=== PATIENT | female | born 1950 | race Caucasian/White ===

== ENCOUNTER 2017-10-05 08:29 | Emergency (ER) | payer BC, MEDICARE ==
[2017-10-05] MEDS ORDERED: ONDANSETRON HCL INJ/PF 4 MG/2 ML SDV IV ONE (08:38)
--- NOTE | 2017-10-05 08:39 | ER Document Report ---
ED General - General Chief Complaint: Nausea/Vomiting/Diarrhea Stated Complaint: VOMITING Time Seen by Provider: 10/05/17 08:38 Mode of Arrival: Ambulatory Information source: Patient Notes: 67-year-old female presents with complaints of nausea vomiting diarrhea for the duration. Patient states it has been constant she denies any fevers or chills admits to cramping when she is having the diarrhea. Patient notes multiple sick contacts at home denies any previous similar episodes with family member does note patient has a history of abdominal symptoms that have been similar TRAVEL OUTSIDE OF THE [place] IN LAST 30 DAYS: No - HPI Onset: Last week Onset/Duration: Persistent Quality of pain: Cramping Severity: Mild Pain Level: 1 Associated symptoms: Diarrhea, Nausea, Vomiting Exacerbated by: Denies Relieved by: Denies Similar symptoms previously: Yes Recently seen / treated by doctor: No - Related Data Allergies/Adverse Reactions: No Known Allergies Allergy (Verified 10/05/17 08:30) Past Medical History - Social History Smoking Status: Current Every Day Smoker Cigarette use (# per day): Yes Chew tobacco use (# tins/day): No Smoking Education Provided: No Family History: Reviewed & Not Pertinent GI Medical History: Reports: Hx Ulcer Past Surgical History: Reports: Hx Abdominal Surgery - X3 for gastric ulcers, Hx Hysterectomy, Hx Orthopedic Surgery - bilateral knee arthroscopic surgery 15 years ago, Hx Tonsillectomy Review of Systems - Review of Systems Notes: REVIEW OF SYSTEMS: CONSTITUTIONAL : Denies fever, chills, or sweats. Denies recent illness. EENT: Denies eye, ear, throat, or mouth pain or symptoms. Denies nasal or sinus congestion or discharge. Denies throat, tongue, or mouth swelling or difficulty swallowing. CARDIOVASCULAR: Denies chest pain. Denies palpitations or racing or irregular heart beat. Denies ankle edema. RESPIRATORY: Denies cough, cold, or chest congestion. Denies shortness of breath, difficulty breathing, or wheezing. GASTROINTESTINAL: Admits to nausea vomiting diarrhea GENITOURINARY: Denies difficulty urinating, painful urination, burning, frequency, blood in urine, or discharge. FEMALE GENITOURINARY: Denies vaginal bleeding, heavy or abnormal periods, irregular periods. Denies vaginal discharge or odor. MUSCULOSKELETAL: Denies back or neck pain or stiffness. Denies joint pain or swelling. SKIN: Denies rash, lesions or sores. HEMATOLOGIC : Denies easy bruising or bleeding. LYMPHATIC: Denies swollen, enlarged glands. NEUROLOGICAL: Denies confusion or altered mental status. Denies passing out or loss of consciousness. Denies dizziness or lightheadedness. Denies headache. Denies weakness or paralysis or loss of use of either side. Denies problems with gait or speech. Denies sensory loss, numbness, or tingling. Denies seizures. PSYCHIATRIC: Denies anxiety or stress. Denies depression, suicidal ideation, or homicidal ideation. ALL OTHER SYSTEMS REVIEWED AND NEGATIVE. PHYSICAL EXAMINATION: GENERAL: Well-appearing, well-nourished and in no acute distress. HEAD: Atraumatic, normocephalic. EYES: Pupils equal round and reactive to light, extraocular movements intact, conjunctiva are normal. ENT: Nares patent, oropharynx clear without exudates. Dry lips NECK: Normal range of motion, supple without lymphadenopathy LUNGS: Breath sounds clear to auscultation bilaterally and equal. No wheezes rales or rhonchi. HEART: Tachycardic ABDOMEN: Soft, nontender, nondistended abdomen. No guarding, no rebound. No masses appreciated. Female : deferred Musculoskeletal: Normal range of motion, no pitting or edema. No cyanosis. NEUROLOGICAL: Cranial nerves grossly intact. Normal speech, normal gait. Normal sensory, motor exams PSYCH: Normal mood, normal affect. SKIN: Warm, Dry, normal turgor, no rashes or lesions noted. Dictation was performed using [employer] voice recognition software Physical Exam - Vital signs Vitals: Temp Pulse Resp BP Pulse Ox 98.2 F 122 H 20 154/69 H 98 10/05/17 08:35 10/05/17 08:35 10/05/17 08:35 10/05/17 08:35 10/05/17 08:35 Course - Re-evaluation Re-evalutation: 10/05/17 11:27 Patient appears to be dehydrated from constant nausea vomiting diarrhea, IV fluids have been ordered and she starts state that she is feeling better but is still mildly nauseated for the fluids and nausea control have been ordered 10/05/17 16:57 After 3 L of fluid were given patient looks much better she states she feels much better, I believe she was significantly dehydrated. Her heart rate came down to 103 on my evaluation and she is stable for discharge with understand that she returns immediately if symptoms do worsen she will be discharged home with nausea control After performing a Medical Screening Examination, I estimate there is LOW risk for ACUTE APPENDICITIS, BOWEL OBSTRUCTION, ACUTE CHOLECYSTITIS, PERFORATED DIVERTICULITIS, INCARCERATED HERNIA, PANCREATITIS, PELVIC INFLAMMATORY DISEASE, PERFORATED ULCER, ECTOPIC , or TUBO-OVARIAN ABSCESS, thus I consider the discharge disposition reasonable. Also, there is no evidence or peritonitis , sepsis, or toxicity. I have reevaluated this patient multiple times and no significant life threatening changes are noted. The patient and I have discussed the diagnosis and risks, and we agree with discharging home with close follow-up with the understanding that symptoms and presentations can change. We also discussed returning to the Emergency Department immediately if new or worsening symptoms occur. We have discussed the symptoms which are most concerning (e.g., bloody stool, fever, changing or worsening pain, vomiting) that necessitate immediate return. - Vital Signs Vital signs: Temp Pulse Resp BP Pulse Ox 98.8 F 120 H 13 141/91 H 98 10/05/17 13:33 10/05/17 08:45 10/05/17 12:10 10/05/17 13:33 10/05/17 11:18 - Laboratory Result Diagrams: 10/05/17 09:15 10/05/17 10:47 Laboratory results interpreted by me: 10/05/17 10/05/17 09:15 10:47 WBC 15.9 H Hgb 15.7 H Seg Neutrophils % 84.1 H Lymphocytes % 6.4 L Absolute Neutrophils 13.4 H Creatinine 0.51 L Glucose 137 H Discharge - Discharge Clinical Impression: Nausea vomiting and diarrhea, Sinus tachycardia Condition: Stable Disposition: HOME, SELF-CARE Instructions: Fever ([facility]), Intravenous (IV) Fluids ([facility]) Additional Instructions: Follow up with your physician tomorrow for further care or return to the ED IMMEDIATELY if symptoms worsen or new concerns occur. If you cannot afford to follow up with your primary care physician a list of low cost clinics have been provided at the end of your discharge papers as well. Prescriptions: Ondansetron [Zofran Odt 4 mg Tablet] 1 - 2 tab PO Q4H PRN #15 tab.rapdis PRN Reason: For Nausea/Vomiting Forms: Return to Work
[2017-10-05] MEDS: NORMAL SALINE 1000 ML 1,000 ML IV PRN ×2 (09:15→10:07)
[2017-10-05 09:31] LABS: ABSOLUTE BASOPHILS # (AUTO) 0.1 10^3/uL (0.0-0.2); ABSOLUTE MONOCYTES (AUTO) 1.4 10^3/uL (0.1-1.4); ABSOLUTE NEUT (AUTO) 13.4 10^3/uL (1.7-8.2); BASOPHILS % (AUTO) 0.4 % (0-2); HEMATOCRIT 46.5 % (36.0-47.0); HEMOGLOBIN 15.7 g/dL (12.0-15.5); HGB HCT DIFFERENCE 0.6; LYMPHOCYTES % (AUTO) 6.4 % (13-45); MEAN CORPUSCULAR HEMOGLOBIN 31.3 pg (27.0-33.4); MEAN CORPUSCULAR HGB CONC 33.7 g/dL (32.0-36.0); MEAN CORPUSCULAR VOLUME 93 fl (80-97); MONOCYTES % (AUTO) 9.1 % (3-13); RED BLOOD COUNT 5.02 10^6/uL (3.72-5.28); RED CELL DISTRIBUTION WIDTH 12.9 % (11.5-14.0); SEGMENTED NEUTROPHILS % (AUTO) 84.1 % (42-78); WHITE BLOOD COUNT 15.9 10^3/uL (4.0-10.5)
[2017-10-05] MEDS ORDERED: METOCLOPRAMIDE HCL INJ/PF 10 MG/2 ML SDV IV ONE (09:31)
[2017-10-05 11:22] LABS: ALANINE AMINOTRANSFERASE 31 U/L (9-52); ALKALINE PHOSPHATASE 64 U/L (38-126); ANION GAP 11 (5-19); ASPARTATE AMINO TRANSFERASE 21 U/L (14-36); BILIRUBIN,DIRECT 0.3 mg/dL (0.0-0.4); BILIRUBIN,TOTAL 0.4 mg/dL (0.2-1.3); BLOOD UREA NITROGEN 19 mg/dL (7-20); CALCIUM 8.6 mg/dL (8.4-10.2); CARBON DIOXIDE 26 mmol/L (22-30); CHLORIDE 102 mmol/L (98-107); CREATININE RESULT 0.51 mg/dL (0.52-1.25); GLUCOSE 137 mg/dL (75-110); POTASSIUM 4.1 mmol/L (3.6-5.0); SODIUM 138.9 mmol/L (137-145); TOTAL PROTEIN 6.5 g/dL (6.3-8.2)
[2017-10-05] MEDS ORDERED: NORMAL SALINE 1000 ML 1,000 ML IV ONE (11:26)
[2017-10-05 13:33] VITALS: BP 141/91
== END 2017-10-05 13:39 | disposition home or self-care (01) ==
LOC: ER 08:29
DX: R11.2 Nausea with vomiting, unspecified (principal); R19.7 Diarrhea, unspecified; R25.2 Cramp and spasm; R00.0 Tachycardia, unspecified; F17.210 Nicotine dependence, cigarettes, uncomplicated; Z87.11 Personal history of peptic ulcer disease; Z98.890 Other specified postprocedural states
CPT/HCPCS: 99283; 96361; 96374; 96375; 36415; 83690; 85025; 80053; J2765; J2405; J7030

== ENCOUNTER 2017-10-12 18:20 | Emergency (ER) | payer BC, MEDICARE ==
[2017-10-12] MEDS ORDERED: NORMAL SALINE 1000 ML 1,000 ML IV ONE (20:34)
[2017-10-12] MEDS ORDERED: SULFAMETHOXAZOLE/TRIMETHOPRIM 800-160 MG TABLET PO ONE (20:34)
[2017-10-12] MEDS ORDERED: ONDANSETRON HCL INJ/PF 4 MG/2 ML SDV IV ONE (20:35)
--- NOTE | 2017-10-12 20:37 | ER Document Report ---
ED Medical Screen (RME) - General Chief Complaint: Urinary Problem Stated Complaint: ABDOMINAL PAIN Time Seen by Provider: 10/12/17 20:33 Notes: 67-year-old female with a history of multiple medical problems who presents today with 3 days of some suprapubic abdominal pain. She denies any radiation aggravating or relieving factors. She states she has had urinary tract infections in the past. She however denies any dysuria. Patient was diagnosed around 2 weeks ago with some shingles to her right back and abdomen. She was also here 1 week ago with some vomiting. Patient states that the lesions of her shingles have gotten "worse". She denies any fevers but states she does feel "dehydrated". She has not had any vomiting or diarrhea since that time. On examination the patient has a good-like abdomen. Bowel sounds present. Some mild tenderness without any obvious swelling to the suprapubic region. Regarding the patient's lesions, the patient has lesions following a dermatome from the right back around to the right abdomen. They are however raised indurated and fluctuant. Given the history and physical examination I will order urinalysis, basic labs, Bactrim, and reassess. TRAVEL OUTSIDE OF THE [place] IN LAST 30 DAYS: No - Related Data Allergies/Adverse Reactions: No Known Allergies Allergy (Verified 10/12/17 18:21) Past Medical History - Social History Family history: Reviewed & Not Pertinent Renal/ Medical History: Denies: Hx Peritoneal Dialysis GI Medical History: Reports: Hx Gastroesophageal Reflux Disease, Hx Ulcer Musculoskeltal Medical History: Reports Hx Arthritis Past Surgical History: Reports: Hx Abdominal Surgery - X3 for gastric ulcers, Hx Hysterectomy, Hx Orthopedic Surgery - bilateral knee arthroscopic surgery 15 years ago, Hx Tonsillectomy Physical Exam - Vital signs Vitals: Temp Pulse Resp BP Pulse Ox 98.1 F 114 H 16 130/65 H 95 10/12/17 18:41 10/12/17 18:41 10/12/17 18:41 10/12/17 18:41 10/12/17 18:41 Course - Vital Signs Vital signs: Temp Pulse Resp BP Pulse Ox 98.1 F 114 H 16 130/65 H 95 10/12/17 18:41 10/12/17 18:41 10/12/17 18:41 10/12/17 18:41 10/12/17 18:41
[2017-10-12 21:36] LABS: ABSOLUTE BASOPHILS # (AUTO) 0.2 10^3/uL (0.0-0.2); ABSOLUTE EOSINOPHILS # (AUTO) 0.4 10^3/uL (0.0-0.6); ABSOLUTE LYMPHOCYTES (AUTO) 2.7 10^3/uL (0.5-4.7); ABSOLUTE NEUT (AUTO) 9.3 10^3/uL (1.7-8.2); BASOPHILS % (AUTO) 1.2 % (0-2); EOSINOPHILS % (AUTO) 3.2 % (0-6); HEMATOCRIT 39.1 % (36.0-47.0); HEMOGLOBIN 13.1 g/dL (12.0-15.5); LYMPHOCYTES % (AUTO) 20.1 % (13-45); MEAN CORPUSCULAR HEMOGLOBIN 31.2 pg (27.0-33.4); MEAN CORPUSCULAR HGB CONC 33.6 g/dL (32.0-36.0); MEAN CORPUSCULAR VOLUME 93 fl (80-97); MONOCYTES % (AUTO) 7.3 % (3-13); PLATELET COUNT 349 10^3/uL (150-450); RED CELL DISTRIBUTION WIDTH 12.7 % (11.5-14.0); SEGMENTED NEUTROPHILS % (AUTO) 68.2 % (42-78); TOTAL CELLS COUNTED % (AUTO) 100 %; WHITE BLOOD COUNT 13.6 10^3/uL (4.0-10.5)
[2017-10-12 21:55] LABS: ALANINE AMINOTRANSFERASE 27 U/L (9-52); ALBUMIN 3.6 g/dL (3.5-5.0); ALKALINE PHOSPHATASE 73 U/L (38-126); ANION GAP 6 (5-19); ASPARTATE AMINO TRANSFERASE 20 U/L (14-36); BILIRUBIN,DIRECT 0.3 mg/dL (0.0-0.4); BILIRUBIN,TOTAL 0.3 mg/dL (0.2-1.3); BLOOD UREA NITROGEN 11 mg/dL (7-20); CALCIUM 9.8 mg/dL (8.4-10.2); CARBON DIOXIDE 35 mmol/L (22-30); CHLORIDE 96 mmol/L (98-107); GLUCOSE 111 mg/dL (75-110); POTASSIUM 4.3 mmol/L (3.6-5.0); SODIUM 136.5 mmol/L (137-145); TOTAL PROTEIN 6.2 g/dL (6.3-8.2)
--- NOTE | 2017-10-12 23:01 | ER Document Report ---
ED GI/ - General Chief Complaint: Urinary Problem Stated Complaint: ABDOMINAL PAIN Time Seen by Provider: 10/12/17 20:33 Notes: The patient is a 67-year-old female, past medical history right back shingles ( seeing pain management), presents with 1 day of suprapubic pain and dysuria. She is also having thrush and it is difficult for her to drink or eat anything. She was seen in the ER last week and was found to be dehydrated. Patient denies flank pain, fevers, nausea, vomiting, diarrhea, constipation, hematuria, vaginal discharge, chest pain or shortness of breath. TRAVEL OUTSIDE OF THE [place] IN LAST 30 DAYS: No - Related Data Allergies/Adverse Reactions: No Known Allergies Allergy (Verified 10/12/17 18:21) Past Medical History - General Information source: Patient - Social History Smoking Status: Unknown if Ever Smoked Family History: Reviewed & Not Pertinent Renal/ Medical History: Denies: Hx Peritoneal Dialysis GI Medical History: Reports: Hx Gastroesophageal Reflux Disease, Hx Ulcer Musculoskeltal Medical History: Reports Hx Arthritis Past Surgical History: Reports: Hx Abdominal Surgery - X3 for gastric ulcers, Hx Hysterectomy, Hx Orthopedic Surgery - bilateral knee arthroscopic surgery 15 years ago, Hx Tonsillectomy Review of Systems - Review of Systems Notes: REVIEW OF SYSTEMS: CONSTITUTIONAL: -fevers, -chills EENT: -eye pain, -difficulty swallowing, -nasal congestion CARDIOVASCULAR:-chest pain, -syncope. RESPIRATORY: -cough, -SOB GASTROINTESTINAL: +suprapubic abdominal pain, -nausea, -vomiting, -diarrhea GENITOURINARY: -dysuria, -hematuria MUSCULOSKELETAL: -back pain, -neck pain SKIN: +shingles rash HEMATOLOGIC: -easy bruising or bleeding. LYMPHATIC: -swollen, enlarged glands. NEUROLOGICAL: -altered mental status or loss of consciousness, -headache, - neurologic symptoms PSYCHIATRIC: -anxiety, -depression. ALL OTHER SYSTEMS REVIEWED AND NEGATIVE. Physical Exam - Vital signs Vitals: Temp Pulse Resp BP Pulse Ox 98.1 F 114 H 16 130/65 H 95 10/12/17 18:41 10/12/17 18:41 10/12/17 18:41 10/12/17 18:41 10/12/17 18:41 - Notes Notes: PHYSICAL EXAMINATION: GENERAL: Well-appearing, well-nourished and in no acute distress. HEAD: Atraumatic, normocephalic. EYES: Pupils equal round and reactive to light, extraocular movements intact, sclera anicteric, conjunctiva are normal. ENT: nares patent, oropharynx clear without exudates. Moist mucous membranes. Thrush on tongue. NECK: Normal range of motion, supple without lymphadenopathy LUNGS: Breath sounds clear to auscultation bilaterally and equal. No wheezes rales or rhonchi. HEART: Regular rhythm. ABDOMEN: Soft, mild suprapubic tenderness, normoactive bowel sounds. No guarding, no rebound. No masses appreciated. EXTREMITIES: Normal range of motion, no pitting or edema. No cyanosis. NEUROLOGICAL: Cranial nerves grossly intact. Normal speech, normal gait. Normal sensory and motor exams. PSYCH: Normal mood, normal affect. SKIN: Vesicular rash over right back. Course - Re-evaluation Re-evalutation: Patient appears very well. She is in no acute distress. Her urinalysis does not show any signs of a UTI and patient said that her recent urinations in the ER are not painful. Will provide her with Pyridium to help with any dysuria. She is also requesting medicine to help with thrush in order for her to stay hydrated. Will prescribe nystatin rinse. She is already being followed by [facility] for her shingles pain and is on Dilaudid, Flexeril and lidocaine cream. Will have her continue to follow-up with pain management. Patient's initial tachycardia on arrival to the ER improved after fluids and patient is tolerating oral fluids. Blood work is unremarkable, other than a slight leukocytosis, which is below her prior values. Instructed her to continue to stay hydrated. Given strict return precautions and she understands. - Vital Signs Vital signs: Temp Pulse Resp BP Pulse Ox 98.1 F 114 H 16 130/65 H 95 10/12/17 18:41 10/12/17 18:41 10/12/17 18:41 10/12/17 18:41 10/12/17 18:41 - Laboratory Result Diagrams: 10/12/17 21:12 10/12/17 21:12 Laboratory results interpreted by me: 10/12/17 10/12/17 21:12 21:12 WBC 13.6 H Absolute Neutrophils 9.3 H Sodium 136.5 L Chloride 96 L Carbon Dioxide 35 H Glucose 111 H Total Protein 6.2 L Discharge - Discharge Clinical Impression: Thrush, Dysuria Condition: Stable Disposition: HOME, SELF-CARE Additional Instructions: URINARY ANESTHETIC AGENT: You have been given a medication (Pyridium) for urinary tract discomfort. This medicine numbs the lining of the bladder and urethra, resulting in less pain, burning, and urgency. You may take it as needed, according to instructions. When the symptoms resolve, you can stop this medication (be sure to continue any other medications the doctor has given you). This medicine turns the urine a dark orange. It may stain underwear. Occasionally, it can cause nausea. Return for evaluation if there are any unexpected effects, such as itching, hives, or shortness of breath. FOLLOW-UP CARE: If you have been referred to a physician for follow-up care, call the physician s office for an appointment as you were instructed or within the next two days. If you experience worsening or a significant change in your symptoms, notify the physician immediately or return to the Emergency Department at any time for re-evaluation. Prescriptions: Nystatin [Mycostatin 500,000 Unit/5 ml Susp Udcup] 500,000 unit PO QID #20 udc Phenazopyridine HCl [Pyridium 200 mg Tablet] 200 mg PO TID #15 tablet Referrals: SANGEETA KRAMER MD [ACTIVE STAFF] - Follow up as needed
[2017-10-12 23:10] LABS: APPEARANCE,URINE CLEAR; BILIRUBIN,URINE NEGATIVE (NEGATIVE); COLOR,URINE YELLOW; GLUCOSE, URINE NEGATIVE (NEGATIVE); KETONES,URINE NEGATIVE (NEGATIVE); LEUKOCYTE ESTERASE,URINE NEGATIVE (NEGATIVE); NITRITE,URINE NEGATIVE (NEGATIVE); PROTEIN,URINE NEGATIVE (NEGATIVE); URINE SPECIFIC GRAVITY 1.006; UROBILINOGEN,URINE NEGATIVE mg/dL (<2.0)
[2017-10-12] MEDS ORDERED: PHENAZOPYRIDINE HCL 200 MG TABLET PO ONE (23:42)
[2017-10-13 03:15] VITALS: BP 136/70
== END 2017-10-12 23:45 | disposition home or self-care (01) ==
LOC: ER 18:20
DX: R30.0 Dysuria (principal); B37.9 Candidiasis, unspecified; B02.9 Zoster without complications; R10.30 Lower abdominal pain, unspecified; Z87.11 Personal history of peptic ulcer disease
CPT/HCPCS: 99284; 96361; 96374; 36415; 85025; 80053; 81001; J2405; J7030

== ENCOUNTER 2017-10-23 12:31 | Inpatient (IN) | payer BC, MEDICARE ==
--- NOTE | 2017-10-23 13:38 | ER Document Report ---
ED Medical Screen (RME) - General Chief Complaint: Skin Problem Stated Complaint: SKIN SORES Time Seen by Provider: 10/23/17 13:35 Mode of Arrival: Ambulatory Information source: Patient Notes: Pt has had shingles since Oct 02, now has abscess to right back underneath shingles. maybe f/c, no hx of MRSA TRAVEL OUTSIDE OF THE [place] IN LAST 30 DAYS: No - Related Data Allergies/Adverse Reactions: No Known Allergies Allergy (Verified 10/23/17 12:34) Past Medical History - General Information source: Patient - Social History Family history: Reviewed & Not Pertinent Renal/ Medical History: Denies: Hx Peritoneal Dialysis GI Medical History: Reports: Hx Gastroesophageal Reflux Disease, Hx Ulcer Musculoskeltal Medical History: Reports Hx Arthritis Past Surgical History: Reports: Hx Abdominal Surgery - X3 for gastric ulcers, Hx Hysterectomy, Hx Orthopedic Surgery - bilateral knee arthroscopic surgery 15 years ago, Hx Tonsillectomy Review of Systems - Review of Systems Skin: See HPI Physical Exam - Vital signs Vitals: Temp Pulse Resp BP Pulse Ox 98.8 F 121 H 16 113/66 92 10/23/17 12:50 10/23/17 12:50 10/23/17 12:50 10/23/17 12:50 10/23/17 12:50 - Notes Notes: General: chronically ill appearing, NAD skin: large abscess with necrotic skin overlying to right lower back with shingles rash overlying Course - Vital Signs Vital signs: Temp Pulse Resp BP Pulse Ox 98.8 F 121 H 16 113/66 92 10/23/17 12:50 10/23/17 12:50 10/23/17 12:50 10/23/17 12:50 10/23/17 12:50
[2017-10-23 14:48] LABS: ABSOLUTE BASOPHILS # (AUTO) 0.1 10^3/uL (0.0-0.2); ABSOLUTE EOSINOPHILS # (AUTO) 0.1 10^3/uL (0.0-0.6); ABSOLUTE LYMPHOCYTES (AUTO) 1.8 10^3/uL (0.5-4.7); ABSOLUTE MONOCYTES (AUTO) 0.9 10^3/uL (0.1-1.4); ABSOLUTE NEUT (AUTO) 10.8 10^3/uL (1.7-8.2); BASOPHILS % (AUTO) 0.6 % (0-2); HEMATOCRIT 37.9 % (36.0-47.0); HEMOGLOBIN 12.5 g/dL (12.0-15.5); LYMPHOCYTES % (AUTO) 13.2 % (13-45); MEAN CORPUSCULAR HEMOGLOBIN 30.8 pg (27.0-33.4); MEAN CORPUSCULAR HGB CONC 33.1 g/dL (32.0-36.0); MEAN CORPUSCULAR VOLUME 93 fl (80-97); MONOCYTES % (AUTO) 6.6 % (3-13); PLATELET COUNT 412 10^3/uL (150-450); RED BLOOD COUNT 4.07 10^6/uL (3.72-5.28); RED CELL DISTRIBUTION WIDTH 12.5 % (11.5-14.0); SEGMENTED NEUTROPHILS % (AUTO) 78.6 % (42-78); TOTAL CELLS COUNTED % (AUTO) 100 %; WHITE BLOOD COUNT 13.8 10^3/uL (4.0-10.5)
[2017-10-23] MEDS ORDERED: LIDOCAINE 1% INJ-PF (10 MG/ML) 30 ML SDV INJ ONE (16:49)
[2017-10-23] MEDS ORDERED: SULFAMETHOXAZOLE/TRIMETHOPRIM 800-160 MG TABLET PO ONE (16:49)
--- NOTE | 2017-10-23 16:50 | ER Document Report ---
ED Skin Rash/Insect Bite/Abscs - General Chief Complaint: Skin Problem Stated Complaint: SKIN SORES Time Seen by Provider: 10/23/17 13:35 Mode of Arrival: Ambulatory Notes: Recently with diagnosis of shingles. Over the last several days lesions on skin of gotten worse. Noticed that there is a large amount of swelling on her back. Oozing all of the time. Came here a few times to get seen but the wait was too long so left. Received 2 tablets while at triage of some antibiotics but nothing else. Now things are getting worse. Pain is getting unbearable. TRAVEL OUTSIDE OF THE [place] IN LAST 30 DAYS: No - HPI Patient complains to provider of: Skin rash/lesion Onset/Duration: Gradual Quality of pain: Sharp Severity: Moderate Pain Level: 3 Skin Character: Abscess, Drainage, Erythema - Related Data Allergies/Adverse Reactions: No Known Allergies Allergy (Verified 10/23/17 12:34) Past Medical History - General Information source: Patient - Social History Smoking Status: Current Every Day Smoker Chew tobacco use (# tins/day): No Frequency of alcohol use: None Drug Abuse: None Lives with: Alone Family History: Reviewed & Not Pertinent Patient has suicidal ideation: No Patient has homicidal ideation: No Renal/ Medical History: Denies: Hx Peritoneal Dialysis GI Medical History: Reports: Hx Gastroesophageal Reflux Disease, Hx Ulcer Musculoskeltal Medical History: Reports Hx Arthritis Past Surgical History: Reports: Hx Abdominal Surgery - X3 for gastric ulcers, Hx Hysterectomy, Hx Orthopedic Surgery - bilateral knee arthroscopic surgery 15 years ago, Hx Tonsillectomy Review of Systems - Review of Systems Constitutional: See HPI EENT: No symptoms reported Cardiovascular: No symptoms reported Respiratory: No symptoms reported Gastrointestinal: No symptoms reported Genitourinary: No symptoms reported Female Genitourinary: No symptoms reported Musculoskeletal: No symptoms reported Skin: See HPI Hematologic/Lymphatic: No symptoms reported Neurological/Psychological: No symptoms reported Physical Exam - Vital signs Vitals: Temp Pulse Resp BP Pulse Ox 98.8 F 121 H 16 113/66 92 10/23/17 12:50 10/23/17 12:50 10/23/17 12:50 10/23/17 12:50 10/23/17 12:50 Interpretation: Normal - General General appearance: Appears well, Alert - HEENT Head: Normocephalic, Atraumatic Eyes: Normal Pupils: PERRL - Respiratory Respiratory status: No respiratory distress Chest status: Nontender Breath sounds: Normal Chest palpation: Normal - Cardiovascular Rhythm: Regular Heart sounds: Normal auscultation Murmur: No - Abdominal Inspection: Normal Distension: No distension Bowel sounds: Normal Tenderness: Nontender Organomegaly: No organomegaly - Back Back: Normal, Nontender - Extremities General upper extremity: Normal inspection, Nontender, Normal color, Normal ROM , Normal temperature General lower extremity: Normal inspection, Nontender, Normal color, Normal ROM , Normal temperature, Normal weight bearing. No: Mili's sign - Neurological Neuro grossly intact: Yes Cognition: Normal Orientation: AAOx4 Guffey Coma Scale Eye Opening: Spontaneous Guffey Coma Scale Verbal: Oriented Adelita Coma Scale Motor: Obeys Commands Guffey Coma Scale Total: 15 Speech: Normal Motor strength normal: LUE, RUE, LLE, RLE Sensory: Normal - Psychological Associated symptoms: Normal affect, Normal mood - Skin Skin Temperature: Warm Skin Moisture: Dry Skin Color: Other - Patient has large amount of lesions on the right back and chest wall. Shingle-like pattern but 10 cm x 5 cm abscess with draining present. Other small areas that appear to be developing abscess as well peer Course - Re-evaluation Re-evalutation: 10/23/17 19:12 This is a shingles complication. Has developed abscess. Patient will need I& D. Attempted I&D but lidocaine would not take. Have consulted with surgeon for possible OR debridement and I&D. Will try to admit to the hospitalist service. Starting on vancomycin, pain medication, blood cultures obtained as well. Patient is comfortable with this plan. 10/23/17 20:02 Consulted with hospitalist. Once patient admitted to surgical list will talk to surgeon again. - Vital Signs Vital signs: Temp Pulse Resp BP Pulse Ox 98.6 F 83 18 151/83 H 94 10/23/17 16:56 10/23/17 19:52 10/23/17 19:52 10/23/17 19:52 10/23/17 16:56 - Laboratory Result Diagrams: 10/23/17 14:25 10/23/17 19:40 Laboratory results interpreted by me: 10/23/17 14:25 WBC 13.8 H Seg Neutrophils % 78.6 H Absolute Neutrophils 10.8 H Discharge - Discharge Clinical Impression: Abscess Condition: Fair Disposition: ADMITTED INPATIENT Admitting Provider: Surgicalist - Dr. Cortez Unit Admitted: Medical Floor
[2017-10-23] MEDS ORDERED: VANCOMYCIN HCL INJ 1000 MG VIAL IV ONE (18:57)
[2017-10-23] MEDS ORDERED: FENTANYL CITRATE INJ/PF 100 MCG/2 ML AMPUL IV ONE (18:57)
[2017-10-23 20:21] LABS: ALANINE AMINOTRANSFERASE 19 U/L (9-52); ALBUMIN 3.8 g/dL (3.5-5.0); ALKALINE PHOSPHATASE 74 U/L (38-126); ANION GAP 10 (5-19); ASPARTATE AMINO TRANSFERASE 18 U/L (14-36); BILIRUBIN,DIRECT 0.3 mg/dL (0.0-0.4); BILIRUBIN,TOTAL 0.5 mg/dL (0.2-1.3); BLOOD UREA NITROGEN 9 mg/dL (7-20); CALCIUM 9.8 mg/dL (8.4-10.2); CARBON DIOXIDE 30 mmol/L (22-30); CHLORIDE 95 mmol/L (98-107); GLUCOSE 115 mg/dL (75-110); SODIUM 134.8 mmol/L (137-145); TOTAL PROTEIN 6.8 g/dL (6.3-8.2)
[2017-10-23] MEDS ORDERED: NORMAL SALINE 1000 ML 1,000 ML IV PRN (20:51)
[2017-10-23] MEDS ORDERED: MORPHINE SULFATE 10 MG/ML INJ IV PRN (20:51)
[2017-10-23] MEDS ORDERED: ONDANSETRON HCL INJ/PF 4 MG/2 ML SDV IV PRN (20:51)
--- NOTE | 2017-10-23 20:51 | PDOC H&P ---
History of Present Illness Admission Date/PCP: 10/23/17 20:14 Patient complains of: Back pains History of Present Illness: EULALIA DE LEON is a 67 year old female had shingles on her right side started about 3 weeks ago. Seen in the ED a week ago for a developing Abscess. This was not drained at that time. She was sent home only for the abscess to enlarge and more painful. Past Medical History GI Medical History: Reports: Gastroesophageal Reflux Disease Musculoskeltal Medical History: Reports: Arthritis Psychiatric History Note: Has fibromyalgia Past Surgical History Past Surgical History: Reports: Hysterectomy, Orthopedic Surgery - bilateral knee arthroscopic surgery 15 years ago, Tonsillectomy Social History Lives with: Alone Smoking Status: Current Every Day Smoker Cigarettes Packs Per Day: 1 Frequency of Alcohol Use: Rare Hx Recreational Drug Use: No Family History Family History: Reviewed & Not Pertinent Parental Family History Reviewed: Yes - Mother had DM and of Heart Failure, Father of lung ca Children Family History Reviewed: No Sibling(s) Family History Reviewed.: No Medication/Allergy Allergies/Adverse Reactions: No Known Allergies Allergy (Verified 10/23/17 12:34) Review of Systems Constitutional: PRESENT: other - off and on fever Eyes: PRESENT: other - no visual problems Ears: PRESENT: other - decreased hearing. Wears hearing aid Nose, Mouth, and Throat: PRESENT: other - no sore throat Cardiovascular: PRESENT: other - no chest pains Respiratory: PRESENT: cough Gastrointestinal: PRESENT: other - no abdominal pains Musculoskeletal: PRESENT: back pain - Along the right side below rib cage due to shingles Integumentary: PRESENT: lesions - due to shingles right flank Psychiatric: PRESENT: anxiety Endocrine: PRESENT: other - no polydipsia Hematologic/Lymphatic: PRESENT: other - bruising, healed due to shingles right flank Physical Exam Vital Signs: Temp Pulse Resp BP Pulse Ox 98.6 F 83 18 151/83 H 94 10/23/17 16:56 10/23/17 19:52 10/23/17 19:52 10/23/17 19:52 10/23/17 16:56 General appearance: PRESENT: mild distress Head exam: PRESENT: atraumatic Eye exam: PRESENT: conjunctiva pink Mouth exam: PRESENT: moist, tongue midline Cardiovascular exam: PRESENT: RRR Pulses: PRESENT: normal radial pulses Vascular exam: PRESENT: normal capillary refill GI/Abdominal exam: PRESENT: soft - nontender Rectal exam: PRESENT: deferred Extremities exam: PRESENT: full ROM Musculoskeletal exam: PRESENT: ambulatory Neurological exam: PRESENT: alert, oriented to person, oriented to place, oriented to time, oriented to situation Psychiatric exam: PRESENT: anxious Skin exam: PRESENT: normal color, vesicles - dry vesicles due to shingles, warm Assessment & Plan - Diagnosis (1) Back abscess Is this a current diagnosis for this admission?: Yes - Time Time Spent: 30 to 50 Minutes - Inpatient Certification Based on my medical assessment, after consideration of the patient's comorbidities, presenting symptoms, or acuity I expect that the services needed warrant INPATIENT care.: No I certify that my determination is in accordance with my understanding of Medicare's requirements for reasonable and necessary INPATIENT services [42 CFR 412.3e].: Yes Medical Necessity: Need for IV Antibiotics, Need for Surgery - Plan Summary Plan Summary: Admit to surgery NPO after midnite Start IV antibiotics Hospitalist consult for pain mx. Pt under pain mx c/o Dr De Leon for past 2 years.Has fibromyalgia. For I&D mof back abscess tomorrow
[2017-10-23] MEDS ORDERED: VANCOMYCIN HCL INJ 500 MG VIAL IV ONE (20:58)
[2017-10-23] MEDS ORDERED: NALOXONE HCL INJ/PF 0.4 MG/1 ML SDV IV PRN (22:56)
[2017-10-23] MEDS ORDERED: NICOTINE 14 MG/24 HR PATCH.TD24 TD PRN (23:35)
[2017-10-24] MEDS: HYDROMORPHONE HCL 2 MG TABLET PO PRN ×4 (00:05→23:28)
[2017-10-24] MEDS: VANCOMYCIN HCL 750 MG in DEXTROSE 5%-WATER 250 ML IV SCH ×2 (05:21→18:42)
[2017-10-24] MEDS ORDERED: NORMAL SALINE 1000 ML 1,000 ML IV ONE (08:11)
[2017-10-24] MEDS ORDERED: MORPHINE SULFATE 10 MG/ML INJ IV PRN ×2 (08:12→22:00)
--- NOTE | 2017-10-24 08:18 | PDOC CONSULTATION ---
Consultation Consult Date: 10/23/17 Attending physician:: LEIDY OZUNA Consult reason:: Fibromyalgia/pain management History of Present Illness Admission Date/PCP: 10/23/17 20:14 History of Present Illness: EULALIA DE LEON is a 67 year old female with past medical history of fibromyalgia, rheumatoid arthritis, prior GI bleed requiring partial gastrectomy , tobacco abuse who presents to the emergency department with a back abscess. Patient reports she had shingles and these became secondarily infected and developed an abscess. The hospital service is consulted for pain management of her chronic pain. Past Medical History GI Medical History: Reports: Gastroesophageal Reflux Disease Musculoskeltal Medical History: Reports: Arthritis, Fibromyalgia Psychiatric Medical History: Reports: Tobacco Dependency Past Surgical History Past Surgical History: Reports: Hysterectomy, Orthopedic Surgery - bilateral knee arthroscopic surgery 15 years ago, Tonsillectomy Social History Lives with: Alone Smoking Status: Current Every Day Smoker Cigarettes Packs Per Day: 1 Frequency of Alcohol Use: Rare Hx Recreational Drug Use: No - Advance Directive Resuscitation Status: Full Code Surrogate healthcare decision maker:: Izzy Mcleod, daughter Family History Family History: CAD, DM, Malignancy Parental Family History Reviewed: Yes Children Family History Reviewed: Yes Sibling(s) Family History Reviewed.: Yes Medication/Allergy Home Medications: Diclofenac Sodium [Voltaren] 100 gm TP Q8HP PRN 10/23/17 Hydromorphone HCl [Dilaudid 2 mg Tablet] 2 mg PO Q6HP PRN 10/23/17 Ondansetron [Ondansetron Odt] 4 mg PO Q4HP PRN 10/23/17 Allergies/Adverse Reactions: No Known Allergies Allergy (Verified 10/23/17 12:34) Review of Systems Constitutional: PRESENT: chills, fatigue, fever(s). ABSENT: headache(s), weight gain, weight loss Eyes: ABSENT: visual disturbances Ears: ABSENT: hearing changes Cardiovascular: ABSENT: chest pain, dyspnea on exertion, edema, orthropnea, palpitations Respiratory: ABSENT: cough, hemoptysis Gastrointestinal: ABSENT: abdominal pain, constipation, diarrhea, hematemesis, hematochezia, nausea, vomiting Genitourinary: ABSENT: dysuria, hematuria Musculoskeletal: ABSENT: joint swelling Integumentary: PRESENT: as per HPI, rash, wounds Neurological: ABSENT: abnormal gait, abnormal speech, confusion, dizziness, focal weakness, syncope Psychiatric: ABSENT: anxiety, depression, homidical ideation, suicidal ideation Endocrine: ABSENT: cold intolerance, heat intolerance, polydipsia, polyuria Hematologic/Lymphatic: ABSENT: easy bleeding, easy bruising Physical Exam Vital Signs: Temp Pulse Resp BP Pulse Ox 99.3 F 117 H 18 111/56 L 96 10/23/17 22:03 10/23/17 22:03 10/23/17 22:03 10/23/17 22:03 10/23/17 22:03 General appearance: PRESENT: mild distress - Pain, well-developed, well- nourished Head exam: PRESENT: atraumatic, normocephalic Eye exam: PRESENT: conjunctiva pink, EOMI, PERRLA. ABSENT: scleral icterus Ear exam: PRESENT: normal external ear exam Mouth exam: PRESENT: dry mucosa, tongue midline Neck exam: ABSENT: JVD, lymphadenopathy, thyromegaly, tracheal deviation Respiratory exam: PRESENT: prolonged expiratory phas, unlabored. ABSENT: rales , rhonchi, wheezes Cardiovascular exam: PRESENT: RRR, +S1, +S2, tachycardia. ABSENT: diastolic murmur, rubs, systolic murmur Pulses: PRESENT: normal dorsalis pedis pul Vascular exam: PRESENT: normal capillary refill GI/Abdominal exam: PRESENT: hypoactive bowel sounds, soft. ABSENT: distended, guarding, mass, organolmegaly, rebound, tenderness Rectal exam: PRESENT: deferred Extremities exam: PRESENT: full ROM. ABSENT: calf tenderness, clubbing, pedal edema Neurological exam: PRESENT: alert, awake, oriented to person, oriented to place , oriented to time, oriented to situation, CN II-XII grossly intact. ABSENT: motor sensory deficit Psychiatric exam: PRESENT: appropriate affect, normal mood. ABSENT: homicidal ideation, suicidal ideation Skin exam: PRESENT: dry, rash - Dermatomal distribution of crusted lesions, vesicles - Dried crusted vesicles with yellow green drainage, warm. ABSENT: cyanosis Results Laboratory Results: 10/23/17 10/23/17 14:25 19:40 WBC 13.8 H Plt Count 412 Seg Neutrophils % 78.6 H Sodium 134.8 L Potassium 4.0 Chloride 95 L Glucose 115 H Assessment & Plan - Diagnosis (1) Shingles Qualifiers: Herpes zoster complications: with other complications Qualified Code(s): B02.8 - Zoster with other complications Is this a current diagnosis for this admission?: Yes Plan: At this time, patient's lesions are crusted and she does not appear to have any new vesicle formation. It is unlikely that she would benefit from the addition of acyclovir or valacyclovir (2) Chronically on opiate therapy Is this a current diagnosis for this admission?: Yes Plan: Continue Dilaudid 2 mg p.o. every 6 as needed (3) Fibromyalgia Is this a current diagnosis for this admission?: Yes (4) H/O resection of stomach Is this a current diagnosis for this admission?: Yes (5) Tobacco abuse Is this a current diagnosis for this admission?: Yes Plan: Nicotine patch as needed (6) Hyponatremia Is this a current diagnosis for this admission?: Yes Plan: Likely secondary to dehydration (7) Abscess Is this a current diagnosis for this admission?: Yes Plan: Defer treatment of her abscess, antibiotic selection, complications, and treatment to the primary surgical team - Time Time Spent: 30 to 50 Minutes Medications reviewed and adjusted accordingly: Yes
[2017-10-24] MEDS ORDERED: ONDANSETRON ODT 4 MG TAB (6 TAB/ER DISP) PO PRN (09:14)
[2017-10-24] MEDS ORDERED: ONDANSETRON 4 MG TAB.RAPDIS PO PRN (09:18)
[2017-10-24 09:31] LABS: ABSOLUTE BASOPHILS # (AUTO) 0.1 10^3/uL (0.0-0.2); ABSOLUTE EOSINOPHILS # (AUTO) 0.1 10^3/uL (0.0-0.6); ABSOLUTE LYMPHOCYTES (AUTO) 1.7 10^3/uL (0.5-4.7); ABSOLUTE MONOCYTES (AUTO) 0.9 10^3/uL (0.1-1.4); ABSOLUTE NEUT (AUTO) 10.7 10^3/uL (1.7-8.2); BASOPHILS % (AUTO) 0.5 % (0-2); EOSINOPHILS % (AUTO) 0.5 % (0-6); HEMATOCRIT 33.2 % (36.0-47.0); HEMOGLOBIN 10.9 g/dL (12.0-15.5); LYMPHOCYTES % (AUTO) 12.6 % (13-45); MEAN CORPUSCULAR HEMOGLOBIN 30.5 pg (27.0-33.4); MEAN CORPUSCULAR HGB CONC 32.8 g/dL (32.0-36.0); MEAN CORPUSCULAR VOLUME 93 fl (80-97); MONOCYTES % (AUTO) 6.9 % (3-13); PLATELET COUNT 330 10^3/uL (150-450); RED BLOOD COUNT 3.58 10^6/uL (3.72-5.28); RED CELL DISTRIBUTION WIDTH 12.4 % (11.5-14.0); SEGMENTED NEUTROPHILS % (AUTO) 79.5 % (42-78); TOTAL CELLS COUNTED % (AUTO) 100 %; WHITE BLOOD COUNT 13.5 10^3/uL (4.0-10.5)
[2017-10-24 09:50] LABS: ANION GAP 8 (5-19); BLOOD UREA NITROGEN 8 mg/dL (7-20); CALCIUM 9.6 mg/dL (8.4-10.2); CARBON DIOXIDE 28 mmol/L (22-30); CHLORIDE 100 mmol/L (98-107); GLUCOSE 113 mg/dL (75-110); POTASSIUM 4.1 mmol/L (3.6-5.0)
--- NOTE | 2017-10-24 10:18 | PROGRESS NOTE E ---
Progress Note NAME: EULALIA DE LEON : 1950 AGE: 67Y DATE: 10/24/2017 ROOM: 431 SUBJECTIVE: The patient is currently lying in bed. Upon my entering the room, the patient was asleep and actually to be physically awakened. Although I awakened the patient on rounds, the patient stated that her pain was only tolerable at this time. The patient has had no reported episodes of vomiting nor diarrhea. The patient has been afebrile. Blood pressure has been in a good range. The patient's only complaint is that she wants to eat. The patient is n.p.o. for the OR and the patient does not voice any other concerns at this time. REVIEW OF SYSTEMS: Rest of review of systems negative. MEDICATIONS: Medications have been reviewed. OBJECTIVE: GENERAL: The patient is a 67-year-old female who is awake, alert, and oriented to person, place, time, and situation. She is verbal, conversational, does not appear to be in acute distress. VITAL SIGNS: Temperature is 98.3, pulse 99, respirations 16, blood pressure is 103/65, oxygen saturation is 94% on room air. SKIN: Warm and dry. No rash. She is not diaphoretic. HEENT: Pupils equal, round, and reactive to light and accommodation. Conjunctiva is pink. There is no evidence of JVP. CARDIOVASCULAR SYSTEM: Heart is regular. There is no murmur or rub. CHEST: Clear, symmetrical, unlabored. ABDOMEN: Soft, nontender, nondistended. BACK: No CVA tenderness or sacral edema. EXTREMITIES: No clubbing, cyanosis, edema. PSYCHIATRIC: Appropriate affect, pleasant mood. DIAGNOSTICS: Lab values are as follows: Hematology obtained on 10/24/2017 is pending. Hematology obtained on 10/23/2017: WBCs are 13.8, hemoglobin is 12.5, hematocrit is 37.9, platelet count is 412,000. Chemistry obtained on 10/24/2017 is pending. Chemistry obtained on 10/23/2017: Sodium is 134, potassium 4.0, chloride is 95, carbon dioxide 30, BUN 9, creatinine is 0.52, glucose 115, calcium is 9.8. IMPRESSION AND PLAN: 1. BACK ABSCESS SECONDARY TO BACTERIAL INFECTION FROM ZOSTER. Given the crusting nature of this, I do not think the patient would benefit from antiviral therapy at this time, only symptomatic management. 2. OPIATE DEPENDENCY, CONTINUOUS. Have continued the patient's home opiate dosing. 3. FIBROMYALGIA. 4. TOBACCO DEPENDENCY, CONTINUOUS. Spent 3 minutes discussing smoking cessation education. The patient declines any pharmacological intervention at this time, however, is agreeable to a p.r.n. nicotine patch. 5. HYPONATREMIA, MOST LIKELY DUE TO ACUTE PROCESS. Will continue to gently hydrate and follow. DISPOSITION: The patient is a FULL CODE. Pending patient's symptomatology and diagnostic findings, will re-evaluate in the a.m. Time spent on this followup including assessment, plan, physical examination, patient education, review of records is 20 minutes. DICTATING PHYSICIAN: TOSIN WU NP [id number] PHY#: [id number] ID: [id number] JOB#: [id number] ACCT: [id number] cc: >
--- NOTE | 2017-10-24 11:48 | PDOC PROGRESS REPORT ---
Subjective Progress Note for:: 10/24/17 Subjective:: Complaining of right-sided flank pain. Reason For Visit: BACK ABSCESS,SHINGLES Physical Exam Vital Signs: Temp Pulse Resp BP Pulse Ox 98.3 F 99 16 103/65 94 10/24/17 08:03 10/24/17 08:03 10/24/17 08:03 10/24/17 08:03 10/24/17 08:03 Intake & Output 10/23/17 10/24/17 10/25/17 06:59 06:59 06:59 Intake Total 240 Balance 240 Weight 56.7 kg General appearance: PRESENT: no acute distress, cooperative Respiratory exam: PRESENT: clear to auscultation bella Cardiovascular exam: PRESENT: RRR Skin exam: PRESENT: other - Several small areas of erythema with underlying fluctuance and a slight purulent drainage along her right flank. On her right back at the same dermatome there is a large area of skin necrosis with underlying fluctuance. Results Laboratory Results: 10/24/17 09:06 10/24/17 09:06 10/24/17 10/24/17 09:06 09:06 WBC 13.5 H RBC 3.58 L Hgb 10.9 L Hct 33.2 L MCV 93 MCH 30.5 MCHC 32.8 RDW 12.4 Plt Count 330 Seg Neutrophils % 79.5 H Lymphocytes % 12.6 L Monocytes % 6.9 Eosinophils % 0.5 Basophils % 0.5 Absolute Neutrophils 10.7 H Absolute Lymphocytes 1.7 Absolute Monocytes 0.9 Absolute Eosinophils 0.1 Absolute Basophils 0.1 Sodium 136.0 L Potassium 4.1 Chloride 100 Carbon Dioxide 28 Anion Gap 8 BUN 8 Creatinine 0.57 Est GFR ( Amer) > 60 Est GFR (Non-Af Amer) > 60 Glucose 113 H Calcium 9.6 Assessment & Plan - Diagnosis (1) Abscess Is this a current diagnosis for this admission?: Yes Plan: Several small areas of erythema with underlying fluctuance and a slight purulent drainage along her right flank. On her right back at the same dermatome there is a large area of skin necrosis with underlying fluctuance. Patient was strongly benefit from excisional debridement. Will plan this procedure in the OR. I have discussed with the patient the nature of the surgery and the risk and benefits including risk of infection, bleeding, prolonged wound healing especially in light of the amount of necrotic skin that will need to be debrided. Patient understands and agrees to proceed.
[2017-10-24] MEDS: IPRATROPIUM/ALBUTEROL 120 PUFF/4 GM MDI IH SCH ×3 (11:54→23:28)
[2017-10-24] MEDS: LIDOCAINE 5% (700 MG) TRANSDERMAL ADH..PATCH TP SCH (11:56)
[2017-10-24] MEDS ORDERED: SUCCINYLCHOLINE CHLORIDE INJ 200 MG/10 ML VIAL ONE (12:08)
[2017-10-24] MEDS ORDERED: BUPIVACAINE HCL 0.25 % INJ/PF (2.5 MG/1 ML) 30 ML VIAL ONE (12:19)
[2017-10-24] MEDS ORDERED: NYSTATIN 500000 UNIT/5 ML UDCUP PO ONE (13:00)
[2017-10-24] MEDS: NYSTATIN 500000 UNIT/5 ML UDCUP PO SCH ×2 (13:25→18:41)
[2017-10-24] MEDS ORDERED: KETAMINE HCL INJ 500 MG/10 ML VIAL ONE (15:56)
[2017-10-24] MEDS ORDERED: PROPOFOL INJ 200 MG/20 ML VIAL IV ONE ×2 (15:57→17:35)
[2017-10-24] MEDS ORDERED: FENTANYL CITRATE INJ/PF 100 MCG/2 ML AMPUL IV PRN ×3 (16:50)
[2017-10-24] MEDS ORDERED: MEPERIDINE HCL/PF INJ 25 MG/1 ML DISP.SYRIN IV PRN (16:50)
[2017-10-24] MEDS ORDERED: PROMETHAZINE HCL INJ 25 MG/1 ML VIAL IV PRN (16:50)
[2017-10-24] MEDS ORDERED: ONDANSETRON HCL INJ/PF 4 MG/2 ML SDV IV PRN (16:50)
[2017-10-24] MEDS ORDERED: DIPHENHYDRAMINE HCL 50 MG/ML VIAL IV PRN (16:50)
[2017-10-24] MEDS ORDERED: LIDOCAINE 2%/EPINEPHRINE INJ 20 ML VIAL ONE (16:55)
--- NOTE | 2017-10-24 17:30 | Operative Report ---
Operative Report DATE OF SURGERY: 10/24/17 PREOPERATIVE DIAGNOSIS: Right flank and back abscesses POSTOPERATIVE DIAGNOSIS: Right flank and back abscesses OPERATION: Excisional debridement of right flank and back abscesses SURGEON: ADRIANNA SIERRA ANESTHESIA: GA TISSUE REMOVED OR ALTERED: Right back full-thickness skin necrosis excision submitted to pathology, pus laden fat submitted to microbiology. COMPLICATIONS: None ESTIMATED BLOOD LOSS: 50 cc INTRAOPERATIVE FINDINGS: Multiple small abscesses along the right flank. 8 x 4 cm triangular region of full thickness necrosis of the skin and underlying fat on the patient's right back with pus laden underlying fat. PROCEDURE: Informed consent was obtained. Patient was brought to the operating room placed on the operating room table in supine position. After satisfactory induction of general anesthesia patient was placed on her left side and her right flank and back were prepped and draped in the usual sterile fashion. Local anesthetic was injected around the wounds. She had four small abscess pockets along her right flank measuring about 1-2 cm in size. These small abscess pockets were unroofed and curetted allowing drainage. At her right back in the same dermatome there was a 8 x 4 cm triangular region of full- thickness skin necrosis. All of the necrotic tissue was debrided with a scalpel and submitted to pathology. Underlying the necrotic skin there was pus laden fat which was sharply debrided with a scalpel. The wound was curetted especially on the edges where I encountered more pus laden fat. All necrotic tissue was debrided away. Hemostasis was achieved with electrocautery. The wounds were then packed with gauze. Patient tolerated procedure well with no apparent complications and was taken to the recovery area in stable condition.
[2017-10-24] MEDS ORDERED: FENTANYL CITRATE INJ/PF 100 MCG/2 ML AMPUL ONE (17:34)
[2017-10-24] MEDS ORDERED: MIDAZOLAM 2 MG/2 ML INJ ONE (17:34)
[2017-10-24] MEDS ORDERED: ONDANSETRON HCL INJ/PF 4 MG/2 ML SDV ONE (17:35)
--- NOTE | 2017-10-24 18:48 | EKG REPORT ---
SEVERITY:- ABNORMAL ECG - SINUS TACHYCARDIA RBBB AND LAFB : Confirmed by: Dawit Bello MD 24-Oct-2017 18:47:53
[2017-10-25] MEDS: HYDROMORPHONE HCL 2 MG TABLET PO PRN ×3 (05:48→18:06)
[2017-10-25] MEDS: IPRATROPIUM/ALBUTEROL 120 PUFF/4 GM MDI IH SCH ×2 (05:48→12:07)
[2017-10-25] MEDS: VANCOMYCIN HCL 750 MG in DEXTROSE 5%-WATER 250 ML IV SCH (05:48)
[2017-10-25 07:14] LABS: VANCOMYCIN,TROUGH 6.6 ug/mL (5.0-20.0)
[2017-10-25] MEDS: LIDOCAINE 5% (700 MG) TRANSDERMAL ADH..PATCH TP SCH (09:21)
[2017-10-25] MEDS: NYSTATIN 500000 UNIT/5 ML UDCUP PO SCH ×2 (09:21→15:16)
[2017-10-25] MEDS ORDERED: VANCOMYCIN HCL 750 MG in DEXTROSE 5%-WATER 250 ML IV SCH (14:00)
--- NOTE | 2017-10-25 16:08 | CONSULTATION REPORT E ---
Consultation Report NAME: EULALIA DE LEON : 1950 AGE: 67Y DATE: 10/25/2017 431 A TO: FAUSTO JONES PA-C FROM: Jenn GOFF, Requesting Physician CHIEF COMPLAINT: Mid back pain due to shingles. HISTORY OF PRESENT ILLNESS: This patient has chronic lower back pain and is well known to our clinic. She takes Dilaudid 2 mg 4 times a day for back pain regularly. She notes mid back pain currently due to a shingles outbreak. She underwent a recent excision due to necrosis. She states her pain has improved since she had the excision. Currently, she has constant, achy, burning pain, worse over the right side of her mid back, which is a 3/5 currently. She states her Dilaudid is helpful for this. Lidoderm patches are also helpful. She has morphine IV ordered, but has not requested this yet. She has previously taken both Neurontin and Lyrica, but could not tolerate due to the side effects of dizziness. She has not tried either Keppra or Elavil. She has difficulty sleeping due to her pain, and would like to try a medications that could help pain and also help her sleep as well. PAST MEDICAL HISTORY: 1. Back pain. 2. Lumbar degenerative disk disease. 3. Osteoarthritis. ALLERGIES: None. MEDICATIONS: As per chart. SOCIAL HISTORY: She does smoke cigarettes, 6 cigarettes a day. She denies using alcohol. She denies recreational drug use. 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 She is and she has 3 children. REVIEW OF SYSTEMS: CONSTITUTIONAL: She denies any fevers, chills, dizziness, weakness, loss of appetite. SKIN: + rash/blisters due to shingles. Denies bruising, itching. HEENT: Denies visual changes or difficulty hearing. CARDIOVASCULAR SYSTEM: Denies chest pain, edema, heart palpitations. RESPIRATORY: Denies cough, sputum production. GASTROINTESTINAL: Denies nausea, vomiting, diarrhea, abdominal pain, or constipation. URINARY: Denies frequency, dysuria, or hematuria. MUSCULOSKELETAL: Positive for low back pain. NEUROLOGIC: Denies weakness, numbness, tingling, bowel or bladder incontinence, seizures, tremors, or loss of consciousness. ENDOCRINE: Denies recent weight changes. Review of systems is otherwise negative. PHYSICAL EXAMINATION: GENERAL: On examination, the patient is a well-developed, well-nourished 67-year-old female who appears stated age and is awake, alert, and oriented to person, place, and time. She does not appear to be in acute distress. She is sitting upright and eating lunch. VITAL SIGNS: Stable. SKIN: Warm and dry. HEENT: Normocephalic, atraumatic. Extraocular muscles are intact. CARDIOVASCULAR SYSTEM: Good pulses. No edema. LUNGS: Respirations are nonlabored. EXTREMITIES: She is able to move all extremities without difficulty. NEUROLOGIC: Dispute Resolution Specialist strength is 5/5 bilaterally. MUSCULOSKELETAL: Postop bandage has been placed over her mid back. No drainage noted. PSYCHIATRIC: Patient is alert and oriented to person, place, time. IMPRESSION AND PLAN: Patient with shingles outbreak requiring excision of necrotic tissue. Plan to continue her home medications of Dilaudid 2 mg daily as needed. She has morphine IV ordered if needed. We do recommend addition of a neuropathic agent; however, she has failed Neurontin and Lyrica with dizziness. Recommend a trial of Elavil at bedtime to help with both pain and sleep. If no relief, we will consider addition of Keppra. She will follow up in our outpatient clinic upon discharge. Thank you for this consult. DICTATING PHYSICIAN: FAUSTO JONES PA-C [id number] DANIELLEY#: [id number] ID: [id number] JOB#: [id number] ACCT: [id number] cc:FAUSTO JONES PA-C > [facility]
--- NOTE | 2017-10-25 17:29 | PDOC DISCHARGE SUMMARY ---
Discharge Summary (SDC) - Discharge Final Diagnosis: Abscess of the Back Date of Surgery: 10/24/17 Discharge Date: 10/25/17 Condition: Good Treatment or Instructions: Wet to dry dressing daily Prescriptions: Amitriptyline HCl 10 mg PO QHS #30 tablet Sulfamethoxazole/Trimethoprim [Bactrim Ds Tablet] 1 each PO BID #20 tablet Referrals: [facility] [Outside] WOUND CARE [Outside] - 11/15/17 2:00 pm (W[facility] WILL CALL PATIENT AND SCHEDULE AN APPT.) Discharge Activity: Activity As Tolerated Home Care Assistance: Home Health Report the Following to Your Physician Immediately: Fever over 101 Degrees, Drainage-Yellow, Drainage-[place], Drainage-Green, Drainage-Foul Smelling
[2017-10-25 18:17] VITALS: BP 111/56
[2017-10-25] MEDS ORDERED: AMITRIPTYLINE HCL 10 MG TABLET PO SCH (22:00)
--- NOTE | 2017-10-26 06:08 | DISCHARGE SUMMARY E ---
Discharge Summary NAME: EULALIA ED LEON : 1950 AGE: 67Y ADMITTED: 10/23/2017 DISCHARGED: 10/25/2017 CODE STATUS: Full Code. CONSULTANTS: 1. Surgicalist: Charlie Cortez MD 2. Pain Management: Dr. De Leon. DISCHARGE DIAGNOSES: Includes: 1. Back abscess secondary to bacterial infection from zoster. 2. Opiate dependence, continuous. 3. Fibromyalgia. 4. Tobacco dependency. 5. Hyponatremia. DISCHARGE MEDICATIONS: 1. Bactrim DS 1 tablet p.o. b.i.d., 20 tablets with 0 refill. 2. Dilaudid 10 mg p.o. every 6 hours p.r.n. 3. Amitriptyline 10 mg p.o. at hour of sleep, 30 tablets with 0 refill. 4. Zofran 4 mg p.o. every 4 hours p.r.n. 5. Voltaren gel 1 topical application every 8 hours. DIET: As tolerated. ACTIVITIES: As tolerated. DIAGNOSTICS: Laboratory values are as follows: Hematology obtained on 07/24/2018: WBC 15.5, hemoglobin 13.9, hematocrit 33.3, platelet count 330,000. Chemistries obtained on 10/24/2017: Sodium 136, potassium 4.1, chloride 100, carbon dioxide 28, BUN 8, creatinine 0.57, glucose 13, calcium 9.6, , AST 18, ALT 19, alkaline phosphatase 74, total protein 6.8, albumin 3.8. Microbiology: Wound culture obtained 10/23/2017 revealed MSSA. Blood cultures obtained 10/23/2017 revealed no growth. EKG obtained on 07/24/2018 revealed sinus tachycardia. HISTORY OF PRESENT ILLNESS: The patient is a 67-year-old female with a past medical history of chronic pain. The patient presented to the emergency department with the chief complaint of back pain. The patient has had shingles on her right side, which started approximately 3 weeks ago. The patient was seen in the ED for a developing abscess. It was not drained at that time and she was sent on only antibiotics. However, the abscess continued to become enlarged and more painful. The patient was seen by Surgery and was taken to the OR for abscess drainage. The patient tolerated well. Patient discharged with home health. DICTATING PHYSICIAN: TOSIN WU NP [id number] PHY#: [id number] ID: [id number] JOB#: [id number] ACCT: [id number] cc:TOSIN WU NP EFranco RFranco GOFF, > [facility]
== END 2017-10-25 19:28 | disposition home health service (06) | DRG 866 ==
LOC: ER 12:31 → INTOOBSV 20:14 → EH 20:14 → 4S 22:55 → OBSVTOIN 10-25 15:00
PROVIDERS: ADMIT Surgery; ATTEND Surgery
PROC: 0HD6XZZ Extraction of Back Skin, External Approach (ICD-10-PCS; 2017-10-24)
PROC: 0HD6XZZ Extraction of Back Skin, External Approach (ICD-10-PCS; 2017-10-24)
PROC: 0HD6XZZ Extraction of Back Skin, External Approach (ICD-10-PCS; 2017-10-24)
PROC: 0HD6XZZ Extraction of Back Skin, External Approach (ICD-10-PCS; 2017-10-24)
PROC: 0HB6XZZ Excision of Back Skin, External Approach (ICD-10-PCS; principal; 2017-10-24 15:00)
DX: B02.8 Zoster with other complications (principal); L02.212 Cutaneous abscess of back [any part, except buttock and flank]; E87.1 Hypo-osmolality and hyponatremia; B95.61 Methicillin susceptible Staphylococcus aureus infection as the cause of diseases classified elsewhere; M79.7 Fibromyalgia; R00.0 Tachycardia, unspecified; F17.210 Nicotine dependence, cigarettes, uncomplicated; M51.36 Other intervertebral disc degeneration, lumbar region; M19.90 Unspecified osteoarthritis, unspecified site; M06.9 Rheumatoid arthritis, unspecified; K21.9 Gastro-esophageal reflux disease without esophagitis; E86.0 Dehydration; F41.9 Anxiety disorder, unspecified; Z79.891 Long term (current) use of opiate analgesic; Z79.899 Other long term (current) drug therapy; Z90.3 Acquired absence of stomach [part of]; Z90.710 Acquired absence of both cervix and uterus; Z60.2 Problems related to living alone; Z83.3 Family history of diabetes mellitus; Z82.49 Family history of ischemic heart disease and other diseases of the circulatory system; Z80.1 Family history of malignant neoplasm of trachea, bronchus and lung
CPT/HCPCS: 300; 36415; 80048; 80053; 80202; 82565; 85025; 87040; 87070; 87075; 87077; 87186; 87205; 88304; 93005; 93010; 96365; 96375; 99284; G0378; J0330; J2250; J2270; J2405; J2704; J3010; J3370; J3490; J7030; J7060

== ENCOUNTER 2018-02-26 14:15 | Emergency (ER) | payer BC, MEDICARE ==
[2018-02-26 14:58] LABS: ABSOLUTE BASOPHILS # (AUTO) 0.1 10^3/uL (0.0-0.2); ABSOLUTE LYMPHOCYTES (AUTO) 1.3 10^3/uL (0.5-4.7); ABSOLUTE MONOCYTES (AUTO) 0.9 10^3/uL (0.1-1.4); ABSOLUTE NEUT (AUTO) 10.9 10^3/uL (1.7-8.2); BASOPHILS % (AUTO) 0.5 % (0-2); EOSINOPHILS % (AUTO) 0.4 % (0-6); HEMOGLOBIN 13.2 g/dL (12.0-15.5); LYMPHOCYTES % (AUTO) 10.1 % (13-45); MEAN CORPUSCULAR HEMOGLOBIN 30.1 pg (27.0-33.4); MEAN CORPUSCULAR VOLUME 91 fl (80-97); MONOCYTES % (AUTO) 6.6 % (3-13); PLATELET COUNT 251 10^3/uL (150-450); RED BLOOD COUNT 4.39 10^6/uL (3.72-5.28); RED CELL DISTRIBUTION WIDTH 13.2 % (11.5-14.0); SEGMENTED NEUTROPHILS % (AUTO) 82.4 % (42-78); TOTAL CELLS COUNTED % (AUTO) 100 %; WHITE BLOOD COUNT 13.2 10^3/uL (4.0-10.5)
[2018-02-26] MEDS ORDERED: NORMAL SALINE 1000 ML 1,000 ML IV ONE (15:27)
--- NOTE | 2018-02-26 15:50 | ER Document Report ---
ED Dizziness/Weakness - General Chief Complaint: Near Syncope Stated Complaint: SYNCOPE Time Seen by Provider: 02/26/18 14:40 Information source: Patient Notes: Patient is a 67-year-old female that presents today stating that she felt a little lightheaded when she stood up from a sitting position. She states she did have some intermittent tingling to the left hand that is now resolved. She states she saw that her eyes were very bloodshot when she looked in the mirror. She denies any headache, chest pain, or weakness. Patient denies any recent vomiting or diarrhea. She denies any new medications. Patient does take Dilaudid, Flexeril, and Benadryl. She states he takes these medications for chronic pain. 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 Patient also states that she has had some intermittent abdominal discomfort mostly to the left abdomen. She however states that this is chronic for the last 20 years. She states it is normally relieved with a bowel movement. She denies any blood or diarrhea. TRAVEL OUTSIDE OF THE [place] IN LAST 30 DAYS: No - HPI Patient complains to provider of: Dizziness Onset: This morning Onset/Duration: Sudden Quality of pain: No pain Severity: Mild Pain Level: Denies Associated symptoms: Other - See above Exacerbated by: Change in position Baseline gait: Walks w/o assistance - Related Data Allergies/Adverse Reactions: No Known Allergies Allergy (Verified 10/23/17 12:34) Home Medications: cyclobenzaprine. dilaudid. voltaren. benadryl. glucosamine. tumeric. tylenol Past Medical History - General Information source: Patient - Social History Smoking Status: Current Every Day Smoker Cigarette use (# per day): No Chew tobacco use (# tins/day): No Smoking Education Provided: No Frequency of alcohol use: None Drug Abuse: None Family History: Reviewed & Not Pertinent, CAD, DM, Malignancy Patient has suicidal ideation: No Patient has homicidal ideation: No Renal/ Medical History: Denies: Hx Peritoneal Dialysis GI Medical History: Reports: Hx Gastroesophageal Reflux Disease, Hx Ulcer Musculoskeltal Medical History: Reports Hx Arthritis, Reports Hx Fibromyalgia Past Surgical History: Reports: Hx Abdominal Surgery - X3 for gastric ulcers, Hx Hysterectomy, Hx Orthopedic Surgery - bilateral knee arthroscopic surgery 15 years ago, Hx Tonsillectomy Review of Systems - Review of Systems Constitutional: denies: Fever EENT: denies: Eye discharge, Nose discharge Cardiovascular: Dizziness. denies: Chest pain, Palpitations, Syncope Respiratory: denies: Short of breath Gastrointestinal: denies: Abdominal pain, Vomiting Genitourinary: denies: Dysuria Musculoskeletal: denies: Leg swelling Skin: Other - no hives. denies: Rash Neurological/Psychological: Other - no slurred speech -: Yes All other systems reviewed and negative Physical Exam - Vital signs Vitals: Pulse BP 110 H 109/67 02/26/18 14:49 02/26/18 14:49 Notes: Reviewed vital signs and nursing note as charted by RN. CONSTITUTIONAL: Alert and oriented and responds appropriately to questions. Well -appearing; well-nourished HEAD: Normocephalic; atraumatic EYES: PERRL; full extraocular range of motion ENT: Normal nose; no rhinorrhea; moist mucous membranes; pharynx without lesions noted NECK: Supple without meningismus; non-tender; no carotid bruit; no cervical lymphadenopathy, no masses CARD: Regular rate and rhythm; no murmurs, no clicks, no rubs, no gallops; symmetric distal pulses RESP: Normal chest excursion without splinting or tachypnea; breath sounds clear and equal bilaterally ABD/GI: Normal bowel sounds; old abdominal midline scars; non-distended; soft, non-tender, no palpable masses or abdominal bruits present BACK: The back appears normal and is non-tender to palpation EXT: Normal ROM in all joints; non-tender to palpation; no edema SKIN: Normal color for age and race; warm; dry; no acute lesions noted NEURO: CN II through XII are intact. Patient has 5 out of 5 bilateral upper and lower extremity strength with sensation intact to light touch PSYCH: The patient's mood and manner are appropriate. Grooming and personal hygiene are appropriate. Course - Re-evaluation Re-evalutation: Given the above history and physical examination, I will provide fluids, obtain orthostatics, obtain a cardiac panel, EKG, and a CT scan of the head as well as the abdomen and pelvis with a lactic acid. I would like to evaluate for possible acute intracranial process giving the tingling to the left hand initially. Despite the patient's chronicity, I would like to evaluate for an obvious abdominal pathology causing this lightheadedness and mild tachycardia. EKG shows a heart of 106, sinus tachycardia, normal left axis deviation, right bundle branch block with a left anterior fascicular block. Old EKG from October 2017 shows no acute change. 02/26/18 15:51 Rate is 95. No change in examination. Orthostatics as recorded. A liter of fluid have been provided. 02/26/18 17:28 Initial laboratory values as recorded. CT scan is recorded with a bilirubin and liver panel as recorded. No change in the mild dilation of the common bile duct. Patient has no right upper quadrant tenderness on examination. 02/26/18 18:31 Patient's pain is improved. Vital signs are improved. She denies any symptomatology at this time. She still denies any focal neurological deficits. Patient is received a liter of fluid. Repeat troponin has been ordered for 8 PM. Right upper quadrant ultrasound has been ordered given the CT scan report. If the repeat ultrasound and troponin are unremarkable, the patient continues to feel excellent after the fluid, the patient most likely can be discharged home. - Vital Signs Vital signs: Temp Pulse Resp BP Pulse Ox 97.4 F 110 H 16 102/89 H 92 02/26/18 14:51 02/26/18 14:51 02/26/18 17:20 02/26/18 16:01 02/26/18 17:20 - Laboratory Result Diagrams: 02/26/18 13:38 02/26/18 15:30 Laboratory results interpreted by me: 02/26/18 02/26/18 02/26/18 13:38 15:30 17:10 WBC 13.2 H Seg Neutrophils % 82.4 H Lymphocytes % 10.1 L Absolute Neutrophils 10.9 H Potassium 5.4 H BUN 25 H Glucose 168 H Direct Bilirubin 0.6 H Urine Ketones TRACE H Urine Bilirubin SMALL H Urine Urobilinogen 4.0 H Discharge - Discharge Referrals: NILS DIAS MD [Primary Care Provider] - Follow up as needed
[2018-02-26 16:05] LABS: ALANINE AMINOTRANSFERASE 26 U/L (9-52); ALBUMIN 4.1 g/dL (3.5-5.0); ALKALINE PHOSPHATASE 74 U/L (38-126); ANION GAP 10 (5-19); ASPARTATE AMINO TRANSFERASE 29 U/L (14-36); BILIRUBIN,DIRECT 0.6 mg/dL (0.0-0.4); BILIRUBIN,TOTAL 0.6 mg/dL (0.2-1.3); BLOOD UREA NITROGEN 25 mg/dL (7-20); CALCIUM 9.5 mg/dL (8.4-10.2); CARBON DIOXIDE 24 mmol/L (22-30); CHLORIDE 107 mmol/L (98-107); GLUCOSE 168 mg/dL (75-110); POTASSIUM 5.4 mmol/L (3.6-5.0); SODIUM 140.8 mmol/L (137-145); TOTAL PROTEIN 6.4 g/dL (6.3-8.2)
--- NOTE | 2018-02-26 16:53 | RADIOLOGY REPORT (SQ) ---
EXAM DESCRIPTION: CT HEAD WITHOUT COMPLETED DATE/TIME: 02/26/2018 4:44 pm REASON FOR STUDY: 20, dizzi with left hand tingling COMPARISON: None. TECHNIQUE: Axial images acquired through the brain without intravenous contrast. Images reviewed wi th bone, brain and subdural windows. Additional sagittal and coronal reconstructions were generated. Images stored on PACS. All CT scanners at this facility use dose modulation, iterative reconstruction, and/or weight based d osing when appropriate to reduce radiation dose to as low as reasonably achievable (ALARA). [facility]: Dose Right [facility]: CareDose [facility]: Dose Right [facility]: Teradose 4D [facility]: [employer] RADIATION DOSE: CT Rad equipment meets quality standard of care and radiation dose reduction techniq ues were employed. CTDIvol: 53.2 mGy. DLP: 1044 mGy-cm. mGy. LIMITATIONS: None. FINDINGS: VENTRICLES: Normal size and contour. CEREBRUM: No masses. No hemorrhage. No midline shift. No evidence for acute infarction. Normal gra y/white matter differentiation. No areas of low density in the white matter. CEREBELLUM: No masses. No hemorrhage. No alteration of density. No evidence for acute infarction. EXTRAAXIAL SPACES: No fluid collections. No masses. ORBITS AND GLOBE: No intra- or extraconal masses. Normal contour of globe without masses. CALVARIUM: No fracture. PARANASAL SINUSES: No fluid or mucosal thickening. SOFT TISSUES: No mass or hematoma. OTHER: No other significant finding. IMPRESSION: NORMAL BRAIN CT WITHOUT CONTRAST. EVIDENCE OF ACUTE STROKE: NO. COMMENT: Quality ID # [id number]: Final reports with documentation of one or more dose reduction techniques (e.g., Automated exposure control, adjustment of the mA and/or kV according to patient size, use of iterative reconstruction technique) TECHNICAL DOCUMENTATION: JOB ID: [id number] [employer]- All Rights Reserved Reading location - IP/workstation name: [email or web address]
--- NOTE | 2018-02-26 17:01 | RADIOLOGY REPORT (SQ) ---
EXAM DESCRIPTION: CT ABD/PELVIS WITH IV ONLY COMPLETED DATE/TIME: 02/26/2018 4:44 pm REASON FOR STUDY: 20, abdominal pain with h/o of aortic repair COMPARISON: 07/19/2015. TECHNIQUE: CT scan of the abdomen and pelvis performed using helical scanning technique with dynamic intravenous contrast injection. No oral contrast. Images reviewed with lung, soft tissue, and bone windows. Reconstructed coronal and sagittal MPR images reviewed. Delayed images for evaluation of the urinary system also acquired. All images stored on PACS. All CT scanners at this facility use dose modulation, iterative reconstruction, and/or weight based d osing when appropriate to reduce radiation dose to as low as reasonably achievable (ALARA). [facility]: Dose Right [facility]: CareDose [facility]: Dose Right [facility]: Teradose 4D [facility]: [employer] CONTRAST TYPE AND DOSE: 64 mL Isovue 370- low osmolar. RENAL FUNCTION: BUN 25 creatinine 0.84. RADIATION DOSE: CT Rad equipment meets quality standard of care and radiation dose reduction techniq ues were employed. CTDIvol: 9.6 - 14.4 mGy. DLP: 1170 mGy-cm.. LIMITATIONS: None. FINDINGS: LOWER CHEST: No significant findings. No nodules or infiltrates. LIVER: Normal size. No masses. No dilated ducts. SPLEEN: Normal size. Multiple calcifications consistent with calcified granulomas No focal lesions. PANCREAS: No masses. No significant calcifications. No adjacent inflammation or peripancreatic fluid collections. Pancreatic duct not dilated. GALLBLADDER: Small stones versus sludge in the gallbladder. The common bile duct is slightly dilated , measuring 8-9 mm. Similar appearance on the prior study. No inflammatory changes to suggest cholec ystitis. ADRENAL GLANDS: No significant masses or asymmetry. RIGHT KIDNEY AND URETER: No solid masses. No significant calcifications. No hydronephrosis or hyd roureter. LEFT KIDNEY AND URETER: No solid masses. No significant calcifications. No hydronephrosis or hydr oureter. AORTA AND VESSELS: Extensive atherosclerosis with calcifications. No aneurysm. No dissection. Renal arteries, SMA, celiac without stenosis. RETROPERITONEUM: No retroperitoneal adenopathy, hemorrhage or masses. BOWEL AND PERITONEAL CAVITY: No masses or inflammatory changes. No free fluid or peritoneal masses. APPENDIX: Normal. PELVIS: No mass. No free fluid. Normal bladder. ABDOMINAL WALL: No masses. No hernias. BONES: Degenerative changes in the spine with mild grade 1 anterolisthesis of L 3 on L4. OTHER: No other significant finding. IMPRESSION: 1. SMALL STONES VERSUS SLUDGE IN THE GALLBLADDER. MILD DILATION OF THE COMMON BILE DUCT WHICH WAS AL SO PRESENT IN JULY 2015 AND IS UNCHANGED. 2. EXTENSIVE ATHEROSCLEROSIS AND CALCIFICATIONS IN THE ABDOMINAL AORTA. NO ANEURYSM OR OTHER SIGNIFI CANT FINDINGS. 3. OTHER CHRONIC CHANGES ABOVE. NO OTHER SIGNIFICANT OR ACUTE FINDING IN THE ABDOMEN OR PELVIS ON CT SCAN WITH IV CONTRAST. TECHNICAL DOCUMENTATION: JOB ID: [id number] Quality ID # [id number]: Final reports with documentation of one or more dose reduction techniques (e.g., Au tomated exposure control, adjustment of the mA and/or kV according to patient size, use of iterative reconstruction technique) 2010 [employer]- All Rights Reserved Reading location - IP/workstation name: [email or web address]
[2018-02-26 17:54] LABS: APPEARANCE,URINE SLIGHTLY-CLOUDY; BILIRUBIN,URINE SMALL (NEGATIVE); COLOR,URINE AMBER; GLUCOSE, URINE NEGATIVE (NEGATIVE); KETONES,URINE TRACE mg/dL (NEGATIVE); LEUKOCYTE ESTERASE,URINE NEGATIVE (NEGATIVE); NITRITE,URINE NEGATIVE (NEGATIVE); PROTEIN,URINE NEGATIVE (NEGATIVE); URINE SPECIFIC GRAVITY 1.032
--- NOTE | 2018-02-26 21:37 | RADIOLOGY REPORT (SQ) ---
EXAM DESCRIPTION: U/S ABDOMEN LIMITED W/O DOP COMPLETED DATE/TIME: 02/26/2018 9:27 pm REASON FOR STUDY: GB sludge COMPARISON: None. TECHNIQUE: Dynamic and static grayscale images acquired of the right upper quadrant and recorded on PACS. Additional selected color Doppler and spectral images recorded. LIMITATIONS: Study limited due to acoustical interference from fat or from air in the bowel. FINDINGS: PANCREAS: Visualized pancreas and duct normal. Parts of pancreas poorly seen secondary to acoustical interference from fat or from air in the bowel. LIVER: No masses. Echotexture normal. LIVER VASCULATURE: Normal directional flow of the main portal vein and hepatic veins. GALLBLADDER: Small stones/sludge. Normal wall thickness. No pericholecystic fluid. ULTRASOUND-DETECTED HURLEY'S SIGN: Negative. INTRAHEPATIC DUCTS AND COMMON DUCT: CBD and intrahepatic ducts normal caliber. No filling defects. INFERIOR VENA CAVA: Normal flow. AORTA: No aneurysm. RIGHT KIDNEY: Normal size. Normal echogenicity. No solid or suspicious masses. No hydronephrosis. No calcifications. PERITONEAL CAVITY AND RIGHT PLEURAL SPACE: No ascites or effusions. OTHER: No other significant finding. IMPRESSION: SMALL STONES/ SLUDGE IN THE GALLBLADDER. NO BILIARY DILATION ON ULTRASOUND. TECHNICAL DOCUMENTATION: JOB ID: [id number] [employer]- All Rights Reserved Reading location - IP/workstation name: [email or web address]
--- NOTE | 2018-02-26 22:49 | EKG REPORT ---
SEVERITY:- ABNORMAL ECG - SINUS TACHYCARDIA PROBABLE LEFT ATRIAL ABNORMALITY RBBB AND LAFB : Confirmed by: Randy Rodriguez 26-Feb-2018 19:49:14
[2018-02-27 01:32] VITALS: BP 122/84
== END 2018-02-27 01:20 | disposition home or self-care (01) ==
LOC: ER 14:15
DX: R42 Dizziness and giddiness (principal); R20.0 Anesthesia of skin; R10.9 Unspecified abdominal pain; Z79.899 Other long term (current) drug therapy; F17.200 Nicotine dependence, unspecified, uncomplicated
CPT/HCPCS: 93005; 99285; 96360; 36415; 83605; 85025; 80053; 81001; 84484; 76705; 70450; 74177; 93010; J7030

== ENCOUNTER 2018-08-28 18:52 | Emergency (ER) | payer BC, MEDICARE ==
[2018-08-28] MEDS ORDERED: MORPHINE SULFATE 10 MG/ML INJ IV ONE (19:34)
[2018-08-28] MEDS ORDERED: KETOROLAC TROMETHAMINE INJ/PF 30 MG/1 ML SDV IV ONE (19:34)
[2018-08-28] MEDS ORDERED: NORMAL SALINE 1000 ML 1,000 ML IV ONE (19:34)
[2018-08-28] MEDS ORDERED: ONDANSETRON HCL INJ/PF 4 MG/2 ML SDV IV ONE (19:34)
--- NOTE | 2018-08-28 19:36 | ER Document Report ---
ED Medical Screen (RME) - General Chief Complaint: Back Pain Stated Complaint: BACK/LEFT SIDE PAIN Time Seen by Provider: 08/28/18 19:34 Notes: 68 years old female presents today with left flank pain radiating to the groin associated with nausea and vomited a few times. Appears sick. Left flank tenderness noted TRAVEL OUTSIDE OF THE [place] IN LAST 30 DAYS: No - Related Data Allergies/Adverse Reactions: No Known Allergies Allergy (Verified 08/28/18 19:03) Past Medical History - Social History Family history: Reviewed & Not Pertinent Renal/ Medical History: Denies: Hx Peritoneal Dialysis GI Medical History: Reports: Hx Gastroesophageal Reflux Disease, Hx Ulcer Musculoskeltal Medical History: Reports Hx Arthritis, Reports Hx Fibromyalgia Past Surgical History: Reports: Hx Abdominal Surgery - X3 for gastric ulcers, Hx Hysterectomy, Hx Orthopedic Surgery - bilateral knee arthroscopic surgery 15 years ago, Hx Tonsillectomy - Immunizations History of Influenza Vaccine for 07/2017 - 12/2017 Season: Yes Influenza Administration Date for 07/2017 - 12/2017 Season: 07/14/17 Physical Exam - Vital signs Vitals: Temp Pulse Resp BP Pulse Ox 97.6 F 97 18 143/77 H 97 08/28/18 19:16 08/28/18 19:16 08/28/18 19:16 08/28/18 19:16 08/28/18 19:16 Course - Vital Signs Vital signs: Temp Pulse Resp BP Pulse Ox 97.6 F 97 18 143/77 H 97 08/28/18 19:16 08/28/18 19:16 08/28/18 19:16 08/28/18 19:16 08/28/18 19:16 Doctor's Discharge - Discharge Referrals: NILS DIAS MD [Primary Care Provider] - Follow up as needed
[2018-08-28 20:19] LABS: ABSOLUTE LYMPHOCYTES (AUTO) 0.7 10^3/uL (0.5-4.7); ABSOLUTE MONOCYTES (AUTO) 0.3 10^3/uL (0.1-1.4); ABSOLUTE NEUT (AUTO) 6.5 10^3/uL (1.7-8.2); BASOPHILS % (AUTO) 0.5 % (0-2); EOSINOPHILS % (AUTO) 0.4 % (0-6); HEMATOCRIT 43.3 % (36.0-47.0); HEMOGLOBIN 14.4 g/dL (12.0-15.5); LYMPHOCYTES % (AUTO) 9.6 % (13-45); MEAN CORPUSCULAR HEMOGLOBIN 29.7 pg (27.0-33.4); MEAN CORPUSCULAR HGB CONC 33.3 g/dL (32.0-36.0); MEAN CORPUSCULAR VOLUME 89 fl (80-97); MONOCYTES % (AUTO) 3.6 % (3-13); PLATELET COUNT 230 10^3/uL (150-450); RED BLOOD COUNT 4.86 10^6/uL (3.72-5.28); RED CELL DISTRIBUTION WIDTH 13.1 % (11.5-14.0); SEGMENTED NEUTROPHILS % (AUTO) 85.9 % (42-78); TOTAL CELLS COUNTED % (AUTO) 100 %; WHITE BLOOD COUNT 7.6 10^3/uL (4.0-10.5)
--- NOTE | 2018-08-28 20:42 | ER Document Report ---
ED General - General Chief Complaint: Back Pain Stated Complaint: BACK/LEFT SIDE PAIN Time Seen by Provider: 08/28/18 19:34 Mode of Arrival: Ambulatory Information source: Patient Notes: 68-year-old female presents emergency department with complaints of left flank pain that started this morning. She describes it as an aching sensation that starts in the left flank and radiates into the left groin. She had associated nausea and vomiting. No alleviating or exacerbating factors. She denies any diarrhea, constipation, dysuria, hematuria, increased urgency, increased frequency. Patient states that she has had multiple surgeries on her abdomen. She denies any chest pain, shortness of breath. TRAVEL OUTSIDE OF THE [place] IN LAST 30 DAYS: No - HPI Onset: This morning Onset/Duration: Sudden Quality of pain: Achy, Sharp, Stabbing Severity: Moderate Associated symptoms: Nausea, Vomiting Exacerbated by: Denies Relieved by: Denies Similar symptoms previously: No Recently seen / treated by doctor: No - Related Data Allergies/Adverse Reactions: No Known Allergies Allergy (Verified 08/28/18 19:03) Past Medical History - General Information source: Patient - Social History Smoking Status: Current Every Day Smoker Chew tobacco use (# tins/day): No Frequency of alcohol use: None Drug Abuse: None Family History: Reviewed & Not Pertinent, CAD, DM, Malignancy Patient has suicidal ideation: No Patient has homicidal ideation: No Renal/ Medical History: Denies: Hx Peritoneal Dialysis GI Medical History: Reports: Hx Gastroesophageal Reflux Disease, Hx Ulcer Musculoskeletal Medical History: Reports Hx Arthritis, Reports Hx Fibromyalgia Past Surgical History: Reports: Hx Abdominal Surgery - X3 for gastric ulcers, Hx Hysterectomy, Hx Orthopedic Surgery - bilateral knee arthroscopic surgery 15 years ago, Hx Tonsillectomy Review of Systems - Review of Systems Constitutional: No symptoms reported EENT: No symptoms reported Cardiovascular: No symptoms reported Respiratory: No symptoms reported Gastrointestinal: Abdominal pain, Nausea, Vomiting Female Genitourinary: No symptoms reported Musculoskeletal: No symptoms reported Skin: No symptoms reported Hematologic/Lymphatic: No symptoms reported Neurological/Psychological: No symptoms reported -: Yes All other systems reviewed and negative Physical Exam - Vital signs Vitals: Temp Pulse Resp BP Pulse Ox 97.6 F 97 18 143/77 H 97 08/28/18 19:16 08/28/18 19:16 08/28/18 19:16 08/28/18 19:16 08/28/18 19:16 - Notes Notes: PHYSICAL EXAMINATION: GENERAL: Well-appearing, well-nourished and in no acute distress. HEAD: Atraumatic, normocephalic. EYES: Pupils equal round and reactive to light, extraocular movements intact, conjunctiva are normal. ENT: Nares patent, oropharynx clear without exudates. Moist mucous membranes. NECK: Normal range of motion, supple without lymphadenopathy LUNGS: Breath sounds clear to auscultation bilaterally and equal. No wheezes rales or rhonchi. HEART: Regular rate and rhythm without murmurs ABDOMEN: Soft, nontender, nondistended abdomen. No guarding, no rebound. No masses appreciated. Female : deferred Musculoskeletal: Normal range of motion, no pitting or edema. No cyanosis. NEUROLOGICAL: Cranial nerves grossly intact. Normal speech, normal gait. Normal sensory, motor exams PSYCH: Normal mood, normal affect. SKIN: Warm, Dry, normal turgor, no rashes or lesions noted. Course - Re-evaluation Re-evalutation: 08/28/18 22:11 Labs and imaging obtained. No acute process identified. CT scan did not show an acute process. Patient was given pain medication while in the ED. On re- evaluation, patient says that she's feeling better. She'll follow up with PCP outpatient. I instructed her to take medication as directed and to return for worsening symptoms. - Vital Signs Vital signs: Temp Pulse Resp BP Pulse Ox 97.6 F 97 18 143/77 H 97 08/28/18 19:16 08/28/18 19:16 08/28/18 19:16 08/28/18 19:16 08/28/18 19:16 - Laboratory Result Diagrams: 08/28/18 20:08 08/28/18 20:08 Laboratory results interpreted by me: 08/28/18 08/28/18 08/28/18 20:08 20:08 21:07 Seg Neutrophils % 85.9 H Lymphocytes % 9.6 L Glucose 178 H ALT 7 L Urine Blood LARGE H Ur Leukocyte Esterase SMALL H Discharge - Discharge Clinical Impression: Flank pain Constipation Qualifiers: Constipation type: unspecified constipation type Qualified Code(s): K59.00 - Constipation, unspecified Condition: Good Disposition: HOME, SELF-CARE Instructions: Flank Pain ([facility]) Referrals: NILS DIAS MD [Primary Care Provider] - Follow up as needed
[2018-08-28 20:43] LABS: ALANINE AMINOTRANSFERASE 7 U/L (9-52); ALBUMIN 4.2 g/dL (3.5-5.0); ALKALINE PHOSPHATASE 87 U/L (38-126); ANION GAP 10 (5-19); ASPARTATE AMINO TRANSFERASE 17 U/L (14-36); BILIRUBIN,DIRECT 0.4 mg/dL (0.0-0.4); BILIRUBIN,TOTAL 0.5 mg/dL (0.2-1.3); BLOOD UREA NITROGEN 15 mg/dL (7-20); CALCIUM 9.4 mg/dL (8.4-10.2); CARBON DIOXIDE 29 mmol/L (22-30); CHLORIDE 100 mmol/L (98-107); GLUCOSE 178 mg/dL (75-110); LIPASE 72.2 U/L (23-300); POTASSIUM 4.3 mmol/L (3.6-5.0); SODIUM 138.9 mmol/L (137-145); TOTAL PROTEIN 7.3 g/dL (6.3-8.2)
--- NOTE | 2018-08-28 20:51 | RADIOLOGY REPORT (SQ) ---
EXAM DESCRIPTION: CT LTD RENAL STONE PROTOCOL ON COMPLETED DATE/TIME: 08/28/2018 8:39 pm REASON FOR STUDY: Left flank pain COMPARISON: None. TECHNIQUE: CT scan of the abdomen and pelvis performed without intravenous or oral contrast. Images reviewed with lung, soft tissue, and bone windows. Reconstructed coronal and sagittal MPR images revi ewed. All images stored on PACS. All CT scanners at this facility use dose modulation, iterative reconstruction, and/or weight based d osing when appropriate to reduce radiation dose to as low as reasonably achievable (ALARA). [facility]: Dose Right [facility]: CareDose [facility]: Dose Right [facility]: Teradose 4D [facility]: [employer] RADIATION DOSE: CT Rad equipment meets quality standard of care and radiation dose reduction techniq ues were employed. CTDIvol: 5.5 mGy. DLP: 255 mGy-cm.mGy. LIMITATIONS: Lack of contrast. Paucity of intra-abdominal fat. FINDINGS: LOWER CHEST: No significant findings. No nodules or infiltrates. NON-CONTRASTED LIVER, SPLEEN, ADRENALS: Evaluation limited by lack of IV contrast. No identified sign ificant masses. PANCREAS: No masses. No peripancreatic inflammatory changes. GALLBLADDER: There is some dense material that lies dependently in the gallbladder. RIGHT KIDNEY AND URETER: No suspicious masses. Assessment limited by lack of IV contrast. No signif icant calcifications. No hydronephrosis or hydroureter. LEFT KIDNEY AND URETER: No suspicious masses. Assessment limited by lack of IV contrast. No signifi cant calcifications. No hydronephrosis or hydroureter. AORTA AND RETROPERITONEUM: No aneurysm. Extensive aorta iliac atherosclerosis. BOWEL AND PERITONEAL CAVITY: There is considerable stool in the colon. No obvious bowel masses. No inflammatory changes are appreciated. APPENDIX: Not identified. PELVIS, BLADDER, AND ABDOMINAL WALL:No abnormal masses. No free fluid. Bladder normal. BONES: Lumbar degenerative disc changes. OTHER: No other significant finding. IMPRESSION: Constipation. There appear to be some tiny gallstones or gallbladder sand. Osseous fin dings as described. COMMENT: Quality ID # [id number]: Final reports with documentation of one or more dose reduction techniques (e.g., Automated exposure control, adjustment of the mA and/or kV according to patient size, use of iterative reconstruction technique) TECHNICAL DOCUMENTATION: JOB ID: [id number]- All Rights Reserved Reading location - IP/workstation name: [email or web address]
[2018-08-28 21:22] LABS: APPEARANCE,URINE SLIGHTLY-CLOUDY; BILIRUBIN,URINE NEGATIVE (NEGATIVE); COLOR,URINE YELLOW; GLUCOSE, URINE NEGATIVE (NEGATIVE); KETONES,URINE NEGATIVE (NEGATIVE); LEUKOCYTE ESTERASE,URINE SMALL (NEGATIVE); NITRITE,URINE NEGATIVE (NEGATIVE); PROTEIN,URINE NEGATIVE (NEGATIVE); URINE SPECIFIC GRAVITY 1.014; UROBILINOGEN,URINE NEGATIVE mg/dL (<2.0)
[2018-08-28 22:16] VITALS: BP 110/61
== END 2018-08-28 22:16 | disposition home or self-care (01) ==
LOC: ER 18:52
DX: R10.9 Unspecified abdominal pain (principal); K59.00 Constipation, unspecified; M54.9 Dorsalgia, unspecified; R11.2 Nausea with vomiting, unspecified; F17.200 Nicotine dependence, unspecified, uncomplicated; Z90.710 Acquired absence of both cervix and uterus
CPT/HCPCS: 99284; 96361; 96374; 96375; 36415; 83690; 85025; 80053; 81001; 76380; J1885; J2270; J2405; J7030

== ENCOUNTER 2020-06-16 11:19 | Emergency (ER) | payer BC, MEDICARE ==
--- NOTE | 2020-06-16 12:39 | ER Document Report ---
ED Medical Screen (RME) - General Chief Complaint: Foreign Body in Eye Stated Complaint: FOREIGN OBJECT IN EYE Time Seen by Provider: 06/16/20 12:36 Primary Care Provider: NILS DIAS MD [Primary Care Provider] - Follow up as needed Mode of Arrival: Ambulatory Information source: Patient Notes: 70-year-old female patient presents the emergency department with concern that she has a contact stuck in her right eye. She states it is been there since last night. She denies any pain. She states she cannot feel the contact lens. On initial exam in triage I do not see any obvious contact that I can remove. I have greeted and performed a rapid initial assessment of this patient. A comprehensive ED assessment and evaluation of the patient, analysis of test results and completion of the medical decision making process will be conducted by additional ED providers. I have specifically instructed the patient or family members with the patient to immediately return to any nursing staff should anything change in the patient's condition or with their chief complaint. TRAVEL OUTSIDE OF THE [place] IN LAST 30 DAYS: No - Related Data Allergies/Adverse Reactions: No Known Allergies Allergy (Verified 08/28/18 19:03) Past Medical History - Social History Frequency of alcohol use: None Drug Abuse: None Family history: Reviewed & Not Pertinent Renal/ Medical History: Denies: Hx Peritoneal Dialysis GI Medical History: Reports: Hx Gastroesophageal Reflux Disease, Hx Ulcer Musculoskeltal Medical History: Reports Hx Arthritis, Reports Hx Fibromyalgia Past Surgical History: Reports: Hx Abdominal Surgery - X3 for gastric ulcers, Hx Hysterectomy, Hx Orthopedic Surgery - bilateral knee arthroscopic surgery 15 years ago, Hx Tonsillectomy Physical Exam - Vital signs Vitals: Temp Pulse Resp BP Pulse Ox 98.1 F 102 H 16 161/78 H 98 06/16/20 11:23 06/16/20 11:23 06/16/20 11:23 06/16/20 11:23 06/16/20 11:23 Course - Vital Signs Vital signs: Temp Pulse Resp BP Pulse Ox 98.1 F 102 H 16 161/78 H 98 06/16/20 11:23 06/16/20 11:23 06/16/20 11:23 06/16/20 11:23 06/16/20 11:23 Doctor's Discharge - Discharge Referrals: NILS DIAS MD [Primary Care Provider] - Follow up as needed
--- NOTE | 2020-06-16 13:02 | ER Document Report ---
ED General - General Chief Complaint: Foreign Body in Eye Stated Complaint: FOREIGN OBJECT IN EYE Time Seen by Provider: 06/16/20 12:36 Primary Care Provider: NILS DIAS MD [Primary Care Provider] - Follow up as needed Mode of Arrival: Ambulatory Information source: Patient Notes: Patient is 70-year-old female presenting to the emergency department chief comp laint of foreign body to her right eye. 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 Patient denies any other complaints at this time. Patient states that this happened last evening. TRAVEL OUTSIDE OF THE [place] IN LAST 30 DAYS: No - HPI Onset: Yesterday Onset/Duration: Sudden Quality of pain: No pain Severity: None Pain Level: 0 Associated symptoms: None Exacerbated by: Denies Relieved by: Denies Similar symptoms previously: Yes Recently seen / treated by doctor: No - Related Data Allergies/Adverse Reactions: No Known Allergies Allergy (Verified 08/28/18 19:03) Past Medical History - General Information source: Patient - Social History Smoking Status: Current Every Day Smoker Cigarette use (# per day): Yes Chew tobacco use (# tins/day): No Smoking Education Provided: Yes Frequency of alcohol use: None Drug Abuse: None Family History: Reviewed & Not Pertinent, CAD, DM, Malignancy Patient has suicidal ideation: No Patient has homicidal ideation: No Pulmonary Medical History: Reports: Hx COPD, Hx Pneumonia Renal/ Medical History: Denies: Hx Peritoneal Dialysis GI Medical History: Reports: Hx Gastroesophageal Reflux Disease, Hx Ulcer Musculoskeletal Medical History: Reports Hx Arthritis, Reports Hx Fibromyalgia Past Surgical History: Reports: Hx Abdominal Surgery - X3 for gastric ulcers, Hx Hysterectomy, Hx Orthopedic Surgery - bilateral knee arthroscopic surgery 15 years ago, Hx Tonsillectomy Review of Systems - Review of Systems Notes: REVIEW OF SYSTEMS: CONSTITUTIONAL : Denies fever, chills, or sweats. Denies recent illness. EENT: Per HPI CARDIOVASCULAR: Denies chest pain. RESPIRATORY: Denies cough, cold, or chest congestion. Denies shortness of breath, difficulty breathing, or wheezing. GASTROINTESTINAL: Denies abdominal pain. Denies nausea, vomiting, or diarrhea. Denies constipation. GENITOURINARY: Denies difficulty urinating, painful urination, burning, frequency, or blood in urine. MUSCULOSKELETAL: Denies neck or back pain or joint pain or swelling. SKIN: Denies rash or skin lesions. HEMATOLOGIC : Denies easy bruising or bleeding. NEUROLOGICAL: Denies altered mental status or loss of consciousness. Denies headache. Denies weakness or paralysis or loss of use of either side. Denies problems with gait or speech. Denies sensory or motor loss. PSYCHIATRIC: Denies suicidal or homicidal ideations 10 Systems are negative unless otherwise specified above Physical Exam - Vital signs Vitals: Temp Pulse Resp BP Pulse Ox 98.1 F 102 H 16 161/78 H 98 06/16/20 11:23 06/16/20 11:23 06/16/20 11:23 06/16/20 11:23 06/16/20 11:23 - Notes Notes: PHYSICAL EXAMINATION: GENERAL: Well-appearing, well-nourished and in no acute distress. HEAD: Atraumatic, normocephalic. EYES: Pupils equal round and reactive to light, extraocular movements intact, sclera anicteric, conjunctiva are normal. ENT: nares patent, oropharynx clear without exudates. Moist mucous membranes. NECK: Normal range of motion, supple without lymphadenopathy, no appreciable JVD LUNGS: Lungs clear to auscultation bilaterally and equal. No wheezes rales or rhonchi. HEART: Regular rate and rhythm without murmurs ABDOMEN: Soft, nontender, normal bowel sounds. No guarding, no rebound. No masses appreciated. EXTREMITIES: Active full range of motion, no pitting or edema. No cyanosis. 2+ pulses x4 NEUROLOGICAL: No focal neurological deficits. Moves all extremities spontaneously and on command. SKIN: Warm, Dry, and intact. Normal turgor, no rashes or lesions noted. Course - Re-evaluation Re-evalutation: 06/16/20 14:27 Ocular exam: Patient was anesthetized with tetracaine and stained with fluorescein and eye was examined under Menendez lamp there was no signs of obvious foreign bodies. Patient did have a corneal abrasion at the 6 o'clock position approximately 3 mm wide. The upper eyelid was everted and still no signs of a contact lens or foreign body was identified. Patient will be discharged home follow-up with her on awake counselor in the next couple of days. - Vital Signs Vital signs: Temp Pulse Resp BP Pulse Ox 98.1 F 102 H 16 161/78 H 98 06/16/20 11:23 06/16/20 11:23 06/16/20 11:23 06/16/20 11:23 06/16/20 11:23 Discharge - Discharge Clinical Impression: Corneal abrasion due to contact lens Qualifiers: Laterality: right Qualified Code(s): H18.821 - Corneal disorder due to contact lens, right eye Condition: Stable Disposition: HOME, SELF-CARE Instructions: Corneal Abrasion ([facility]) Prescriptions: Sulfacetamide Sodium [Bleph-10] 2 drop OD Q4H #5 ml Referrals: NILS DIAS MD [Primary Care Provider] - Follow up as needed
[2020-06-16] MEDS ORDERED: TETRACAINE HCL 0.5% OPH SOLN 4 ML OD ONE (13:28)
[2020-06-16 15:03] VITALS: BP 160/76
== END 2020-06-16 15:03 | disposition home or self-care (01) ==
LOC: ER 11:19
DX: H18.821 Corneal disorder due to contact lens, right eye (principal); F17.210 Nicotine dependence, cigarettes, uncomplicated
CPT/HCPCS: 99283; J3490

== ENCOUNTER → 2020-07-25 | Outpatient (CLI) | payer BC, MEDICARE ==
--- NOTE | 2020-07-25 09:58 | RADIOLOGY REPORT (SQ) ---
EXAM DESCRIPTION: U/S ABD AORTIC SCREENING IMAGES COMPLETED DATE/TIME: 07/25/2020 8:44 am REASON FOR STUDY: Z13.6 ENCOUNTER FOR SCREENING FOR CARDIOVASCULAR DISORDERS Z87.891 PERSONAL HISTO RY OF NICOTINE DEPENDENCE I71.4 ABDOMINAL AORTIC ANEURYSM, WITHOUT RUPTURE Z13.6 ENCOUNTER FOR SCRE ENING FOR CARDIOVASCULAR DISORDERS COMPARISON: CT abdomen pelvis 02/26/2018. TECHNIQUE: Static and dynamic grayscale images acquired of the aorta and stored on PACs. Selected co ja Doppler and spectral images recorded. LIMITATIONS: None. FINDINGS: AORTIC CALIBER MAXIMAL PROXIMAL: 1.8 x 2.1 Cm. MID: 1.9 x 2.1 cm. DISTAL: 2.5 x 2.4 Cm. ILIAC DIAMETER RIGHT: Not visualized due to overlying bowel gas. . LEFT: Not visualized due to overlying bowel gas. OTHER: No other significant finding. IMPRESSION: NO ABDOMINAL AORTIC ANEURYSM. COMMENT: Aortic aneurysm imaging followup: 2.1-2.5 cm Not AAA. No followup recommended. *Based upon the ACR White Paper in the J Am Cary Radiol 2013;10 (10):789-794. *For aortas of maximum diameter of 2.6-2.9 cm meeting the criteria for AAA (?1.5 x proximal normal se gment) TECHNICAL DOCUMENTATION: JOB ID: [id number] 2010 [employer]- All Rights Reserved Reading location - IP/workstation name: [email or web address]
== END ==
LOC: RAD 08:51
PROVIDERS: ATTEND Nurse Practitioner Family
DX: Z13.6 Encounter for screening for cardiovascular disorders (principal); Z87.891 Personal history of nicotine dependence
CPT/HCPCS: 76706; G0297

== ENCOUNTER → 2020-08-08 | Outpatient (CLI) | payer BC, MEDICARE ==
--- NOTE | 2020-08-08 15:38 | RADIOLOGY REPORT (SQ) ---
EXAM DESCRIPTION: HIP RIGHT AP/LATERAL IMAGES COMPLETED DATE/TIME: 08/08/2020 3:05 pm REASON FOR STUDY: PAIN IN RT HIP M25.551 PAIN IN RIGHT HIP COMPARISON: None. NUMBER OF VIEWS: Two views. TECHNIQUE: AP and frog-leg view of the right hip. LIMITATIONS: None. FINDINGS: MINERALIZATION: Normal. RIGHT HIP: No fracture or dislocation. No worrisome bone lesions. No contour deformity. No joint sp colin narrowing. Mild subchondral sclerosis. OPPOSITE HIP: Similar findings on the left. SOFT TISSUES: No findings. OTHER: No other significant finding. IMPRESSION: No acute findings. TECHNICAL DOCUMENTATION: JOB ID: [id number] 2010 [employer]- All Rights Reserved Reading location - IP/workstation name: [email or web address]
== END ==
LOC: OD 14:39
PROVIDERS: ATTEND Physician Assistant
DX: M25.551 Pain in right hip (principal)